=== PATIENT | male | born 1970 | race Caucasian/White ===

== ENCOUNTER → 2019-01-28 07:40 | Outpatient (CLI) | payer MEDICAID, SELFPAY ==
--- NOTE | 2019-01-28 07:45 | VDLE_ITS ---
Reason For Study: chronic venous insufficiency RIGHT LEFT CFV is compressible, spontaneous, phasic, CFV is compressible, spontaneous, phasic, competent and demonstrates normal competent, and demonstrates normal augmentation. augmentation. FV is compressible, spontaneous, phasic, FV is compressible, spontaneous, phasic, competent and demonstrates normal competent and demonstrates normal augmentation. augmentation. POP V is compressible, spontaneous, phasic, POP V is compressible, spontaneous, phasic, competent and demonstrates normal competent and demonstrates normal augmentation. augmentation. T/P Trunk is compressible. T/P Trunk is compressible. PTV is compressible. PTV is compressible. RT PerV is compressible. LT PerV is compressible. S-F Junction is competent. S-F Junction is competent. GSV is competent above the knee, but GSV is competent above the knee, but incompetent below the knee for greater incompetent below the knee for greater than .5 seconds. GSV measures .43 x .48 cm. than .5 seconds. GSV measures .48 x .56 cm. ASV below the knee is incompetent for greater ASV below the knee is incompetent for greater than .5 seconds. ASV measures .31 x 37 cm. than .5 seconds. ASV measures .34 x .43 cm. Professor Of History V 8 cm proximal to the medial SSV is competent. malleolus is incompetent for greater than .5 seconds. SSV isincompetent for greater than .5 seconds. SSV measures .32 x .34 cm. Procedure Exam performed in department. The exam was diagnostic. Interpretation Summary 1. Bilateral no DVT. 2. Bilateral above knee GSV competent. But bilateral below knee GSV with reflux measuring right 4.8mm and left 5.6mm. 3. Bilateral below knee ASV relfux measuring right 3.7mm and left 4.3mm. 4. 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 Ordering Physician: Beau Carlisle Performed By: Matt Peters RVT
== END ==
PROVIDERS: Family Provider Family Medicine; PCP Family Medicine; Referring Provider Surgery Vascular Surgery; Visit Provider Surgery Vascular Surgery
DX: I83.893 Varicose veins of bilateral lower extremities with other complications (principal); M79.609 Pain in unspecified limb; M79.89 Other specified soft tissue disorders; I87.2 Venous insufficiency (chronic) (peripheral)
CPT/HCPCS: 93970

== ENCOUNTER 2023-03-07 08:15 | Outpatient (RCR) | payer OTHER, MEDICAID, SELFPAY ==
[2023-02-21 08:21] VITALS: BP 164/91; PULSE 67; RESP 18; TEMP 36.3; BMI 52.9
--- NOTE | 2023-02-21 13:06 | HP.PCM_ITS ---
History of Present Illness Date of Service: 02/21/23 Chief Complaint: Bilateral lower leg ulcerations History of Wound: Patient presents to [facility] today as referred by his PCP for evaluation and management of bilateral lower extremity ulcers. He is accompanied to his appointment today by his . These wounds have been present for several weeks. He is currently on Bactrim as prescribed by his PCP. Washing with soap and water and covering with gauze currently. He has had recurrent ulcerations of bilateral lower extremities for the last 7-8 years. He reports they typically occur from very minor trauma to his lower legs, sometimes they develop unprovoked. In the past, PCP has treated with Unna boots and the ulcers will heal up, but they always recur within a few weeks to a month. He does have significant bilateral lower extremity edema. He does not wear compression, he has tried non-measured compression stockings in the past but they did not fit him well and he had a difficult time putting them on. He estimates he has had about 6 prior venous ablations by Dr. Carlisle but has not followed up with him in a few years. He does not feel the ablations seemed to help. He is also currently taking Lasix for his BLE edema, helping somewhat. This is all complicated by his bilateral knee pain and chronic back pain. Another reason he does not wear compression is because he feels it increases the swelling and pain in his knees. He has been told he needs both knees replaced, but they will not do the surgery until he loses weight which he refuses to attempt to do. He also sleeps in a recliner due to his chronic back pain. He props his feet up on a stool, but this does not elevate them to the level of his heart. He is diabetic, fairly well-controlled. He is a former smoker, quit about 5 years ago. He denies history of arterial disease or intervention, VTE. No lymphedema diagnosis. [facility] Home Medications Aspir-81 81 mg DAILY 02/21/23 [History Last Taken Unknown] amlodipine-valsartan 1 tablet DAILY 02/21/23 [History Last Taken Unknown] carvedilol 1 tablet BID 02/21/23 [History Last Taken Unknown] empagliflozin 10 mg tablet (Jardiance) 10 mg PO BREAKFAST 02/21/23 [History Last Taken Unknown] furosemide 40 mg tablet 40 mg PO DAILY 02/21/23 [History Last Taken Unknown] metformin 500 mg tablet,extended release 24 hr 500 mg PO BID 02/21/23 [History Last Taken Unknown] oxycodone-acetaminophen 7.5 mg-325 mg tablet 1 tab PO Q6H PRN knee pain 02/21/23 [History Last Taken Unknown] rosuvastatin 10 mg tablet 10 mg PO QHS 02/21/23 [History Last Taken Unknown] Social History Smoking Status: Former smoker Vital Signs Vital Signs Vital Signs: 02/21/23 08:21 Temperature 97.3 F L Temperature Source Temporal Pulse Rate 67 Respiratory Rate 18 Blood Pressure 164/91 H Blood Pressure Mean 115 Blood Pressure Source Monitor Blood Pressure Position Semi-Fowlers Blood Pressure Location Left Arm Weight Weight: 380 lb Body Mass Index (BMI) 52.9 Physical Exam Const alert, oriented x3 and no apparent distress Orientation / Consciousness: awake, oriented to person, oriented to place and oriented to time Nutritional Appearance: morbidly obese HEENT normocephalic, head/scalp atraumatic, hearing grossly normal bilaterally, external ears normal and external nose normal Eyes EOMs intact bilaterally General Eye: normal appearance of both eyes Neck General: normal visual inspection and trachea midline Resp normal respiratory effort, normal air movement, no retractions, no use of accessory muscles and clear to auscultation bilaterally Effort and Inspection: able to speak in complete sentences; Negative for labored or stridor Cardio regular rate, regular rhythm and peripheral pulses 2+ throughout Extremity Extremity Narrative: Significant bilateral lower extremity edema. No visible varicosities. No pallor or cyanotic discoloration. Palpable DP pulses. Skin Skin Narrative: Bilateral lipodermatosclerosis, hemosiderin staining, fluid-filled blisters. R posterolateral calf cluster with very thick, dry, hardened slough overlying. [place] wound base once debrided. Small R medial calf ulceration with moderate slough. Large L posterior calf ulceration with very thick, dry, hardened, adherent slough overlying. [place] wound base once debrided. Neuro oriented x3, CN's II-XII intact bilaterally, moves all extremities and no focal motor deficits Speech: speech normal Psych Appearance: grossly normal Attitude: calm Activity / Motor Behavior: appropriate eye contact Speech: normal speech Debridement Note Debridement Note Wound debrided: R posterolateral lower leg cluster Laterality: Right Type of Debridement: Excisional debridement Anesthesia Used: 5% Lidocaine Gel Depth: Down to and including healthy tissue Percentage of wound debrided: 100 Instrument Used: 5mm curette Severity: Limited To Skin Breakdown Amount of bleeding with debridement: Mild Bleeding Controlled with: Pressure Patient tolerated procedure: Patient tolerated procedure well Post-Debridement Measurements and Additional Note: Post-Debridement Measurements/Treatment MARIJA - Nurse 1 - General Ulcer Assessment Start: 02/21/23 08:21 Freq: Status: Active Protocol: RENETTA Activity Type Activity Date Activity User E-sign Co-sign Detail Recorded Client Recorded Date Recorded By Document 02/21/23 08:21 JF [id number] 02/21/23 08:39 JF Edit Result 02/21/23 08:21 JF (1) [id number] 02/21/23 08:50 JF (1) Right - Posterior Tibial Palpable => Yes - Posterior Tibial Doppler => Multiphasic - Dorsalis Pedis Palpable => Yes - Dorsalis Pedis Doppler => Multiphasic - Extremity Color => Hyperpigmented, => Hemosiderin - Hair Growth on Legs => Yes - Hair Growth on Toes => No - Temperature of Extremity => Warm - Capillary Refill => Less than 3 => Seconds - Dependent Rubor => Yes - Blanched when Elevated => N/A - Lipodermatosclerosis => Yes - Foot Assessment => Not Applicable Left - Posterior Tibial Palpable => No - Dorsalis Pedis Palpable => Yes - Dorsalis Pedis Doppler => Multiphasic - Extremity Color => Hyperpigmented, => Hemosiderin - Hair Growth on Legs => Yes - Hair Growth on Toes => No - Temperature of Extremity => Warm - Capillary Refill => Less than 3 => Seconds - Dependent Rubor => Yes - Blanched when Elevated => N/A - Lipodermatosclerosis => Yes - Other Deformity => No - Prior Foot Ulcer => No - Charcot Joint => No - Prior Amputation => No - Thick => No - Discolored => No - Deformed => No - Improper Length & Hygeine => No Preferred language => [place] Cable Stretcher And Tester Required => No Able to Read => Yes Able to Write => Yes Communication Tools => None Caregiver Communication Skills => No Impairment Impairment Right Hearing Abillity => Normal Left Hearing Abillity => Normal Visual Assistive Devices => Glasses Smoking Status Never smoker => Former smoker 02/21/23 08:21 WC - Today's Visit Information Type of service Initial Visit Arrival Mode Ambulatory Accompanied by Patient Identification Verified (Name & Yes ) Patient Requires Transmission-Based No Precautions Height and Weight Height 5 ft 11 in Weight 380 lb Weight in Pounds 380.0 lbs Body Mass Index (BMI) 52.9 BMI Classification Obese BSA - Nik 2.77 Vital Signs Temperature (97.8 F-99.1 F) 97.3 F L Temperature Source Temporal Pulse Rate (60-100) 67 Pulse Location Monitor Respiratory Rate (12-18) 18 Respiratory rate source Observation Blood Pressure (90/60-120/80) 164/91 H Blood Pressure Mean 115 Source Monitor Position Semi-Fowlers Blood Pressure Location Left Arm History Since Last Visit- (Skip if this is Patient's initial visit) Left Footwear Regular Shoe Right Footwear Regular Shoe Pain Scale: 0-10 Numeric Is Patient Pain Free? Yes Lower Extremity Assessment/ Foot Assessment/ Toe Nail Assessment Right -Posterior Tibial Palpable Yes -Posterior Tibial Doppler Multiphasic -Dorsalis Pedis Palpable Yes -Dorsalis Pedis Doppler Multiphasic -Extremity Color Hyperpigmented, Hemosiderin -Hair Growth on Legs Yes -Hair Growth on Toes No -Temperature of Extremity Warm -Capillary Refill Less than 3 Seconds -Dependent Rubor Yes -Blanched when Elevated N/A -Lipodermatosclerosis Yes -Foot Assessment Not Applicable Left -Posterior Tibial Palpable No -Dorsalis Pedis Palpable Yes -Dorsalis Pedis Doppler Multiphasic -Extremity Color Hyperpigmented, Hemosiderin -Hair Growth on Legs Yes -Hair Growth on Toes No -Temperature of Extremity Warm -Capillary Refill Less than 3 Seconds -Dependent Rubor Yes -Blanched when Elevated N/A -Lipodermatosclerosis Yes -Other Deformity No -Prior Foot Ulcer No -Charcot Joint No -Prior Amputation No -Thick No -Discolored No -Deformed No -Improper Length & Hygeine No Communication Assessment Preferred language [place] Cable Stretcher And Tester Required No Able to Read Yes Able to Write Yes Communication Tools None Caregiver Communication Skills No Impairment Impairment Right Hearing Abillity Normal Left Hearing Abillity Normal Visual Assistive Devices Glasses Teaching Assessment Preferences Verbal,Written, Demonstration Barriers to Learning None Readiness To Learn Good Willingness to Engage in Self Management Med Activies Readiness to Engage in Self Management Med Activities Anxiety Level Calm Cooperation Cooperative Perception Coherent Interest in Health Problem Asks Questions Education Importance Acknowledges Need Does Patient Smoke tobacco or other No substances Smoking Status Former smoker Is Patient Diabetic Yes Functional Assessment Recent Decline in Ability to Perform Denies Any Declines Assistive Device With Patient Yes Culture/Islam/Grease And Tallow Pumper Cultural/Islam Needs that may affect No Treatment Plan Would you allow our hospital side sawyer to No meet you for the purpose of spiritual/ emotional support? Grease And Tallow Pumper to contact place of nondenominational No Teaching: Wound Center Control Swelling with Leg Elevation -Person Taught Patient,Family -Teaching Method Discussion, Demonstration -Response to teaching Return demonstration, Verbalize understanding [facility] Orientation/ Contacting Physician -Person Taught Patient,Family -Teaching Method Discussion, Demonstration -Response to teaching Return demonstration, Verbalize understanding - Nurse 1 - General Ulcer Measurement Start: 02/21/23 08:21 Freq: Status: Active Protocol: Activity Type Activity Date Activity User E-sign Co-sign Detail Recorded Client Recorded Date Recorded By Document 02/21/23 08:21 [id number] 02/21/23 08:39 02/21/23 08:21 Wound Center Nurse 1 3-left posterior leg cluster -Combined with other wound No -Current Size (cm) - Length 5.0 -Current Size (cm) - Width 11 -Current Size (cm) - Depth 0.1 -Total Square Cm 55.0 -Photo Taken Yes -Epithelialization Small 1-33% -Tunneling No -Undermining/Tunneling No -Circular Undermining No -Exudate Amt Medium -Exudate Type Serosanguineous -Wound Margin Flat & Intact -Granulation Amt None Present (0 %) -Slough/Fibrin Yes -Necrosis Amt Large (67-100%) -Necrotic Tissue Type Adherent Slough -Structure Exposed N/A -Texture (Sara-wound Skin Appearance) Assessed, Localized Edema -Moisture (Sara-wound Skin Appearance) Assessed,Dry/ Scaly -Color (Sara-wound Skin Appearance) Assessed, Hemosiderin Staining -Temperature (Sara-wound Skin No Abnormality Appearance) (Pt Warm) -Tenderness on Palpation (Sara-wound No Skin Appearance) -Ulcer Cleansing Wound Cleanser -Foul Odor after Cleansing No -Anesthetic Used 5% Lidocaine Gel 2-right medial leg -Combined with other wound No -Current Size (cm) - Length 0.5 -Current Size (cm) - Width 1.8 -Current Size (cm) - Depth 0.1 -Total Square Cm 0.90 -Photo Taken Yes -Epithelialization Small 1-33% -Tunneling No -Undermining/Tunneling No -Circular Undermining No -Exudate Amt Small -Exudate Type Serosanguineous -Wound Margin Flat & Intact -Granulation Amt None Present (0 %) -Slough/Fibrin Yes -Necrosis Amt Large (67-100%) -Necrotic Tissue Type Adherent Slough -Structure Exposed N/A -Texture (Sara-wound Skin Appearance) Assessed, Localized Edema -Moisture (Sara-wound Skin Appearance) Assessed,Dry/ Scaly -Color (Sara-wound Skin Appearance) Assessed -Temperature (Sara-wound Skin No Abnormality Appearance) (Pt Warm) -Tenderness on Palpation (Sara-wound No Skin Appearance) -Ulcer Cleansing Wound Cleanser -Foul Odor after Cleansing No -Anesthetic Used 5% Lidocaine Gel 1-right lateral leg cluster -Combined with other wound No -Current Size (cm) - Length 4.5 -Current Size (cm) - Width 10.5 -Current Size (cm) - Depth 0.1 -Total Square Cm 47.25 -Photo Taken Yes -Epithelialization Small 1-33% -Tunneling No -Undermining/Tunneling No -Circular Undermining No -Exudate Amt Medium -Exudate Type Serosanguineous -Wound Margin Flat & Intact -Granulation Amt Small (1-33%) -Granulation Quality Ring[place] -Slough/Fibrin Yes -Necrosis Amt Large (67-100%) -Necrotic Tissue Type Adherent Slough -Structure Exposed N/A -Texture (Sara-wound Skin Appearance) Assessed, Localized Edema -Moisture (Sara-wound Skin Appearance) Assessed,Dry/ Scaly -Color (Sara-wound Skin Appearance) Assessed, Hemosiderin Staining -Temperature (Sara-wound Skin No Abnormality Appearance) (Pt Warm) -Tenderness on Palpation (Sara-wound No Skin Appearance) -Ulcer Cleansing Rinsed/ Irrigated with Saline -Foul Odor after Cleansing No -Anesthetic Used 5% Lidocaine Gel Lower Limb Edema Present Yes Right Calf (cm) 54.8 Right Ankle (cm) 32 Left Calf (cm) 54.5 Left Ankle (cm) 32.5 WC - Nurse 2 - General Ulcer CM Notes Start: 02/21/23 08:21 Freq: Status: Active Protocol: Activity Type Activity Date Activity User E-sign Co-sign Detail Recorded Client Recorded Date Recorded By Document 02/21/23 11:56 TRINH [id number] 02/21/23 12:01 PL 02/21/23 11:56 Wound Center Nurse 2 3-left posterior leg cluster -Time 08:08 -Correct Patient Yes -Correct Side, Site, Position Yes -Correct Procedure Yes -Procedure Performed Yes -Type of Procedure Debridement -Clinical Debridement Subcutaneous -Tissue Removed Subcutaneous -Post Debridement (cm) - Length 8.7 -Post Debridement (cm) - Width 13.3 -Post Debridement (cm) - Depth 0.1 -Total Square (Post) (cm) 115.71 -Area of Debridement (cm) - Length 8.7 -Area of Debridement (cm) - Width 13.3 -Total Square (Area) (cm) 115.71 -Tunneling No -Undermining/Tunneling No -Circular Undermining No -Wound/Ulcer Outcome Not Healed -Ulcer Cleansing Rinsed/ Irrigated with Saline -Foul Odor after Cleansing No -Bioengineered Tissue No -Bleeding Controlled with Pressure -Treatment Response Procedure Tolerated Well -Debridement - Subq, 1st 20sq cm Yes -Debridement, SubQ, ea addt'l 20sq cm 8 or part thereof 2-right medial leg -Time 08:58 -Correct Patient Yes -Correct Side, Site, Position Yes -Correct Procedure Yes -Procedure Performed Yes -Type of Procedure Debridement -Clinical Debridement Subcutaneous -Tissue Removed Subcutaneous -Post Debridement (cm) - Length 0.9 -Post Debridement (cm) - Width 1.2 -Post Debridement (cm) - Depth 0.1 -Total Square (Post) (cm) 1.08 -Area of Debridement (cm) - Length 0.9 -Area of Debridement (cm) - Width 1.2 -Total Square (Area) (cm) 1.08 -Tunneling No -Undermining/Tunneling No -Circular Undermining No -Wound/Ulcer Outcome Not Healed -Ulcer Cleansing Rinsed/ Irrigated with Saline -Foul Odor after Cleansing No -Bioengineered Tissue No -Bleeding Controlled with Pressure -Treatment Response Procedure Tolerated Well -Debridement - Subq, 1st 20sq cm No 1-right lateral leg cluster -Time 08:58 -Correct Patient Yes -Correct Side, Site, Position Yes -Correct Procedure Yes -Procedure Performed Yes -Type of Procedure Debridement -Clinical Debridement Subcutaneous -Tissue Removed Subcutaneous -Post Debridement (cm) - Length 4.0 -Post Debridement (cm) - Width 11.3 -Post Debridement (cm) - Depth 0.1 -Total Square (Post) (cm) 45.20 -Area of Debridement (cm) - Length 4.0 -Area of Debridement (cm) - Width 11.3 -Total Square (Area) (cm) 45.20 -Tunneling No -Undermining/Tunneling No -Circular Undermining No -Wound/Ulcer Outcome Not Healed -Ulcer Cleansing Rinsed/ Irrigated with Saline -Foul Odor after Cleansing No -Bioengineered Tissue No -Bleeding Controlled with Pressure -Treatment Response Procedure Tolerated Well -Debridement - Subq, 1st 20sq cm No Pain Scale: 0-10 Numeric Is Patient Pain Free? Yes WC - Nurse 3 - General Ulcer D/C NN Start: 02/21/23 08:21 Freq: Status: Active Protocol: Activity Type Activity Date Activity User E-sign Co-sign Detail Recorded Client Recorded Date Recorded By Document 02/21/23 10:08 KOLTON [id number] 02/21/23 10:09 KOLTON 02/21/23 10:08 Wound Care Center Nurse 3 3-left posterior leg cluster -Ulcer Cleansing Rinsed/ Irrigated with Saline -Foul Odor after Cleansing No -Primary Dressing Applied Aquacel AG 4x4, Optilok 6.5x10 -Primary Dressing Covered/Secured with Dry Gauze & Roll Gauze, Secured with Tape -Aquacel AG 4x4 1 -Optilok 6.5x10 1 2-right medial leg -Ulcer Cleansing Rinsed/ Irrigated with Saline -Foul Odor after Cleansing No -Primary Dressing Applied Aquacel AG 4x4 -Primary Dressing Covered/Secured with Dry Gauze & Roll Gauze, Secured with Tape -Aquacel AG 4x4 1 1-right lateral leg cluster -Ulcer Cleansing Rinsed/ Irrigated with Saline -Foul Odor after Cleansing No -Primary Dressing Applied Aquacel AG 4x4 -Primary Dressing Covered/Secured with Dry Gauze & Roll Gauze, Secured with Tape -Aquacel AG 4x4 0 Right -Tubular Bandage Single Layer -Size of Tubigrip Used Size F -Size F ($) 2 Left -Tubular Bandage Single Layer -Size of Tubigrip Used Size F -Size F ($) 2 Pain Scale: 0-10 Numeric Is Patient Pain Free? Yes WC - Visit Discharge Discharge Condition Stable Ambulatory Status Ambulatory Transportation Private Auto Accompanied by Medication Reconcilliation completed & No provided to patient/care provider Clinical Summary of Care Provided No Additional Wound Wound debrided: R medial calf Laterality: Right Type of Debridement: Excisional debridement Anesthesia Used: 5% Lidocaine Gel Depth: Down to and including healthy tissue Percentage of wound debrided: 100 Instrument Used: 5mm curette Severity: Limited To Skin Breakdown Amount of bleeding with debridement: Mild Bleeding Controlled with: Pressure Patient tolerated procedure: Patient tolerated procedure well Additional Wound Wound debrided: L posterior calf Laterality: Left Type of Debridement: Excisional debridement Anesthesia Used: 5% Lidocaine Gel Depth: Down to and including healthy tissue Percentage of wound debrided: 100 Instrument Used: 7mm curette Tissue Removed: slough, devitalized tissue Charges/Coding Visit Charges Office Visits / Consults: [id number] OV L3 New Procedures Integumentary [id number]: [id number] Eusebia subq tissue 20 sq cm/< Assessment/Plan Assessment/Plan (1) Non-pressure chronic ulcer left lower leg, limited to breakdown skin: CODE(S): L97.921 - Non-pressure chronic ulcer of unspecified part of left lower leg limited to breakdown of skin (2) Non-pressure chronic ulcer right lower leg, limited to breakdown skin: CODE(S): L97.911 - Non-pressure chronic ulcer of unspecified part of right lower leg limited to breakdown of skin (3) Bilateral lower extremity edema: CODE(S): R60.0 - Localized edema PLAN: Plan Patient's wounds appear to be secondary to his significant bilateral lower extremity edema. He has a history of venous insufficiency with multiple prior ablations, last venous imaging was about 4 years ago. We will obtain an updated ultrasound to include evaluation for reflux. He has palpable DP pulses bilaterally with appropriate warmth and normal capillary refill so low suspicion for any significant arterial disease contributing to his wounds. He is diabetic but reports his last A1c was 6.1. He does not smoke currently. We will apply Aquacel silver to all wound bases, wrap with Kerlix. Change dressings at least once daily or more often as needed to keep clean and dry. Wash ulcers with gentle soap and water and pat dry with dressing changes. Do not submerge wounds in water. Patient is very hesitant to allow use of compression as he is concerned this will worsen his knee pain. Unfortunately, controlling the edema on his lower legs is necessary to healing these wounds and compression is the most effective way to do so. Ultimately, patient was agreeable to single layer of moderate strength Tubigrips. Discussed with patient the importance of elevating his feet whenever resting or sleeping. Avoid prolonged standing or sitting with feet dependent. Also advised patient to increase protein decrease sugar/carbs in his diet is to encourage wound healing. He will return in 1 week or sooner as needed.
--- NOTE | 2023-02-28 07:23 | PCM.WC.PN ---
History of Present Illness Date of Service: 02/28/23 Chief Complaint: Bilateral lower leg ulcerations History of Wound: Patient presents to [facility] today as referred by his PCP for evaluation and management of bilateral lower extremity ulcers. He is accompanied to his appointment today by his . These wounds have been present for several weeks. He is currently on Bactrim as prescribed by his PCP. Washing with soap and water and covering with gauze currently. He has had recurrent ulcerations of bilateral lower extremities for the last 7-8 years. He reports they typically occur from very minor trauma to his lower legs, sometimes they develop unprovoked. In the past, PCP has treated with Unna boots and the ulcers will heal up, but they always recur within a few weeks to a month. He does have significant bilateral lower extremity edema. He does not wear compression, he has tried non-measured compression stockings in the past but they did not fit him well and he had a difficult time putting them on. He estimates he has had about 6 prior venous ablations by Dr. Carlisle but has not followed up with him in a few years. He does not feel the ablations seemed to help. He is also currently taking Lasix for his BLE edema, helping somewhat. This is all complicated by his bilateral knee pain and chronic back pain. Another reason he does not wear compression is because he feels it increases the swelling and pain in his knees. He has been told he needs both knees replaced, but they will not do the surgery until he loses weight which he refuses to attempt to do. He also sleeps in a recliner due to his chronic back pain. He props his feet up on a stool, but this does not elevate them to the level of his heart. He is diabetic, fairly well-controlled. He is a former smoker, quit about 5 years ago. He denies history of arterial disease or intervention, VTE. No lymphedema diagnosis. Subjective Subjective He has been wearing tubigrip compression stockings as directed, though was not wearing them when he presented today because he just had duplex completed. He has not yet received wound care supplies so has not been applying dressings. Despite this, his wounds are slightly improved in appearance. Denies N/V, F/C, increased redness, pain, drainage. Objective Data Objective Data Vital Signs: Vital Signs Temp Pulse Resp BP 97.3 F L 67 18 164/91 H 02/21/23 08:21 02/21/23 08:21 02/21/23 08:21 02/21/23 08:21 Weight: 380 lb Body Mass Index (BMI) 52.9 Charges/Coding Procedures Integumentary [id number]: [id number] Eusebia subq tissue 20 sq cm/< Physical Exam Const alert, oriented x3 and no apparent distress Orientation / Consciousness: awake, oriented to person, oriented to place and oriented to time Nutritional Appearance: morbidly obese HEENT normocephalic, head/scalp atraumatic, hearing grossly normal bilaterally, external ears normal and external nose normal Eyes EOMs intact bilaterally General Eye: normal appearance of both eyes Neck General: normal visual inspection and trachea midline Resp normal respiratory effort, normal air movement, no retractions, no use of accessory muscles and clear to auscultation bilaterally Effort and Inspection: able to speak in complete sentences; Negative for labored or stridor Cardio regular rate, regular rhythm and peripheral pulses 2+ throughout Extremity Extremity Narrative: Significant bilateral lower extremity edema. No visible varicosities. No pallor or cyanotic discoloration. Palpable DP pulses. Skin Skin Narrative: Bilateral lipodermatosclerosis, hemosiderin staining, fluid-filled blisters. R posterolateral calf cluster and R medial calf ulceration with minimal slough this week, very superficial and improved in appearance from last week. Large L posterior calf ulceration with moderate slough. [place] wound base once debrided. Neuro oriented x3, CN's II-XII intact bilaterally, moves all extremities and no focal motor deficits Speech: speech normal Psych Appearance: grossly normal Attitude: calm Activity / Motor Behavior: appropriate eye contact Speech: normal speech Debridement Note Debridement Note Wound debrided: R posterolateral lower leg cluster Laterality: Right Type of Debridement: Excisional debridement Anesthesia Used: 5% Lidocaine Gel Depth: Down to and including healthy tissue Percentage of wound debrided: 100 Instrument Used: 5mm curette Severity: Limited To Skin Breakdown Amount of bleeding with debridement: Mild Bleeding Controlled with: Pressure Patient tolerated procedure: Patient tolerated procedure well Post-Debridement Measurements and Additional Note: Post-Debridement Measurements/Treatment MARIJA - Nurse 1 - General Ulcer Assessment Start: 02/21/23 08:21 Freq: Status: Active Protocol: RENETTA Activity Type Activity Date Activity User E-sign Co-sign Detail Recorded Client Recorded Date Recorded By Document 02/21/23 08:21 KOLTON [id number] 02/21/23 08:39 JF Edit Result 02/21/23 08:21 JF (1) [id number] 02/21/23 08:50 JF (1) Right - Posterior Tibial Palpable => Yes - Posterior Tibial Doppler => Multiphasic - Dorsalis Pedis Palpable => Yes - Dorsalis Pedis Doppler => Multiphasic - Extremity Color => Hyperpigmented, => Hemosiderin - Hair Growth on Legs => Yes - Hair Growth on Toes => No - Temperature of Extremity => Warm - Capillary Refill => Less than 3 => Seconds - Dependent Rubor => Yes - Blanched when Elevated => N/A - Lipodermatosclerosis => Yes - Foot Assessment => Not Applicable Left - Posterior Tibial Palpable => No - Dorsalis Pedis Palpable => Yes - Dorsalis Pedis Doppler => Multiphasic - Extremity Color => Hyperpigmented, => Hemosiderin - Hair Growth on Legs => Yes - Hair Growth on Toes => No - Temperature of Extremity => Warm - Capillary Refill => Less than 3 => Seconds - Dependent Rubor => Yes - Blanched when Elevated => N/A - Lipodermatosclerosis => Yes - Other Deformity => No - Prior Foot Ulcer => No - Charcot Joint => No - Prior Amputation => No - Thick => No - Discolored => No - Deformed => No - Improper Length & Hygeine => No Preferred language => Citizen Of [place] Con[place] Operator Required => No Able to Read => Yes Able to Write => Yes Communication Tools => None Caregiver Communication Skills => No Impairment Impairment Right Hearing Abillity => Normal Left Hearing Abillity => Normal Visual Assistive Devices => Glasses Smoking Status Never smoker => Former smoker 02/21/23 08:21 - Today's Visit Information Type of service Initial Visit Arrival Mode Ambulatory Accompanied by Patient Identification Verified (Name & Yes ) Patient Requires Transmission-Based No Precautions Height and Weight Height 5 ft 11 in Weight 380 lb Weight in Pounds 380.0 lbs Body Mass Index (BMI) 52.9 BMI Classification Obese BSA - Nik 2.77 Vital Signs Temperature (97.8 F-99.1 F) 97.3 F L Temperature Source Temporal Pulse Rate (60-100) 67 Pulse Location Monitor Respiratory Rate (12-18) 18 Respiratory rate source Observation Blood Pressure (90/60-120/80) 164/91 H Blood Pressure Mean (mm Hg) 115 Source Monitor Position Semi-Fowlers Blood Pressure Location Left Arm History Since Last Visit- (Skip if this is Patient's initial visit) Left Footwear Regular Shoe Right Footwear Regular Shoe Pain Scale: 0-10 Numeric Is Patient Pain Free? Yes Lower Extremity Assessment/ Foot Assessment/ Toe Nail Assessment Right -Posterior Tibial Palpable Yes -Posterior Tibial Doppler Multiphasic -Dorsalis Pedis Palpable Yes -Dorsalis Pedis Doppler Multiphasic -Extremity Color Hyperpigmented, Hemosiderin -Hair Growth on Legs Yes -Hair Growth on Toes No -Temperature of Extremity Warm -Capillary Refill Less than 3 Seconds -Dependent Rubor Yes -Blanched when Elevated N/A -Lipodermatosclerosis Yes -Foot Assessment Not Applicable Left -Posterior Tibial Palpable No -Dorsalis Pedis Palpable Yes -Dorsalis Pedis Doppler Multiphasic -Extremity Color Hyperpigmented, Hemosiderin -Hair Growth on Legs Yes -Hair Growth on Toes No -Temperature of Extremity Warm -Capillary Refill Less than 3 Seconds -Dependent Rubor Yes -Blanched when Elevated N/A -Lipodermatosclerosis Yes -Other Deformity No -Prior Foot Ulcer No -Charcot Joint No -Prior Amputation No -Thick No -Discolored No -Deformed No -Improper Length & Hygeine No Communication Assessment Preferred language Citizen Of [place] Operator Required No Able to Read Yes Able to Write Yes Communication Tools None Caregiver Communication Skills No Impairment Impairment Right Hearing Abillity Normal Left Hearing Abillity Normal Visual Assistive Devices Glasses Teaching Assessment Preferences Verbal,Written, Demonstration Barriers to Learning None Readiness To Learn Good Willingness to Engage in Self Management Med Activies Readiness to Engage in Self Management Med Activities Anxiety Level Calm Cooperation Cooperative Perception Coherent Interest in Health Problem Asks Questions Education Importance Acknowledges Need Does Patient Smoke tobacco or other No substances Smoking Status Former smoker Is Patient Diabetic Yes Functional Assessment Recent Decline in Ability to Perform Denies Any Declines Assistive Device With Patient Yes Culture/Sikhism/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 Fisheries Management Biologist to contact place of caodaism No Teaching: Wound Center Control Swelling with Leg Elevation -Person Taught Patient,Family -Teaching Method Discussion, Demonstration -Response to teaching Return demonstration, Verbalize understanding [facility] Orientation/ Contacting Physician -Person Taught Patient,Family -Teaching Method Discussion, Demonstration -Response to teaching Return demonstration, Verbalize understanding - Nurse 1 - General Ulcer Measurement Start: 02/21/23 08:21 Freq: Status: Active Protocol: Activity Type Activity Date Activity User E-sign Co-sign Detail Recorded Client Recorded Date Recorded By Document 02/21/23 08:21 KOLTON [id number] 02/21/23 08:39 KOLTON 02/21/23 08:21 Wound Center Nurse 1 3-left posterior leg cluster -Combined with other wound No -Current Size (cm) - Length 5.0 -Current Size (cm) - Width 11 -Current Size (cm) - Depth 0.1 -Total Square Cm 55.0 -Photo Taken Yes -Epithelialization Small 1-33% -Tunneling No -Undermining/Tunneling No -Circular Undermining No -Exudate Amt Medium -Exudate Type Serosanguineous -Wound Margin Flat & Intact -Granulation Amt None Present (0 %) -Slough/Fibrin Yes -Necrosis Amt Large (67-100%) -Necrotic Tissue Type Adherent Slough -Structure Exposed N/A -Texture (Sara-wound Skin Appearance) Assessed, Localized Edema -Moisture (Sara-wound Skin Appearance) Assessed,Dry/ Scaly -Color (Sara-wound Skin Appearance) Assessed, Hemosiderin Staining -Temperature (Sara-wound Skin No Abnormality Appearance) (Pt Warm) -Tenderness on Palpation (Sara-wound No Skin Appearance) -Ulcer Cleansing Wound Cleanser -Foul Odor after Cleansing No -Anesthetic Used 5% Lidocaine Gel 2-right medial leg -Combined with other wound No -Current Size (cm) - Length 0.5 -Current Size (cm) - Width 1.8 -Current Size (cm) - Depth 0.1 -Total Square Cm 0.90 -Photo Taken Yes -Epithelialization Small 1-33% -Tunneling No -Undermining/Tunneling No -Circular Undermining No -Exudate Amt Small -Exudate Type Serosanguineous -Wound Margin Flat & Intact -Granulation Amt None Present (0 %) -Slough/Fibrin Yes -Necrosis Amt Large (67-100%) -Necrotic Tissue Type Adherent Slough -Structure Exposed N/A -Texture (Sara-wound Skin Appearance) Assessed, Localized Edema -Moisture (Sara-wound Skin Appearance) Assessed,Dry/ Scaly -Color (Sara-wound Skin Appearance) Assessed -Temperature (Sara-wound Skin No Abnormality Appearance) (Pt Warm) -Tenderness on Palpation (Sara-wound No Skin Appearance) -Ulcer Cleansing Wound Cleanser -Foul Odor after Cleansing No -Anesthetic Used 5% Lidocaine Gel 1-right lateral leg cluster -Combined with other wound No -Current Size (cm) - Length 4.5 -Current Size (cm) - Width 10.5 -Current Size (cm) - Depth 0.1 -Total Square Cm 47.25 -Photo Taken Yes -Epithelialization Small 1-33% -Tunneling No -Undermining/Tunneling No -Circular Undermining No -Exudate Amt Medium -Exudate Type Serosanguineous -Wound Margin Flat & Intact -Granulation Amt Small (1-33%) -Granulation Quality [place] -Slough/Fibrin Yes -Necrosis Amt Large (67-100%) -Necrotic Tissue Type Adherent Slough -Structure Exposed N/A -Texture (Sara-wound Skin Appearance) Assessed, Localized Edema -Moisture (Sara-wound Skin Appearance) Assessed,Dry/ Scaly -Color (Sara-wound Skin Appearance) Assessed, Hemosiderin Staining -Temperature (Sara-wound Skin No Abnormality Appearance) (Pt Warm) -Tenderness on Palpation (Sara-wound No Skin Appearance) -Ulcer Cleansing Rinsed/ Irrigated with Saline -Foul Odor after Cleansing No -Anesthetic Used 5% Lidocaine Gel Lower Limb Edema Present Yes Right Calf (cm) 54.8 Right Ankle (cm) 32 Left Calf (cm) 54.5 Left Ankle (cm) 32.5 WC - Nurse 2 - General Ulcer CM Notes Start: 02/21/23 08:21 Freq: Status: Active Protocol: Activity Type Activity Date Activity User E-sign Co-sign Detail Recorded Client Recorded Date Recorded By Document 02/21/23 11:56 PL [id number] 02/21/23 12:01 PL 02/21/23 11:56 Wound Center Nurse 2 3-left posterior leg cluster -Time 08:08 -Correct Patient Yes -Correct Side, Site, Position Yes -Correct Procedure Yes -Procedure Performed Yes -Type of Procedure Debridement -Clinical Debridement Subcutaneous -Tissue Removed Subcutaneous -Post Debridement (cm) - Length 8.7 -Post Debridement (cm) - Width 13.3 -Post Debridement (cm) - Depth 0.1 -Total Square (Post) (cm) 115.71 -Area of Debridement (cm) - Length 8.7 -Area of Debridement (cm) - Width 13.3 -Total Square (Area) (cm) 115.71 -Tunneling No -Undermining/Tunneling No -Circular Undermining No -Wound/Ulcer Outcome Not Healed -Ulcer Cleansing Rinsed/ Irrigated with Saline -Foul Odor after Cleansing No -Bioengineered Tissue No -Bleeding Controlled with Pressure -Treatment Response Procedure Tolerated Well -Debridement - Subq, 1st 20sq cm Yes -Debridement, SubQ, ea addt'l 20sq cm 8 or part thereof 2-right medial leg -Time 08:58 -Correct Patient Yes -Correct Side, Site, Position Yes -Correct Procedure Yes -Procedure Performed Yes -Type of Procedure Debridement -Clinical Debridement Subcutaneous -Tissue Removed Subcutaneous -Post Debridement (cm) - Length 0.9 -Post Debridement (cm) - Width 1.2 -Post Debridement (cm) - Depth 0.1 -Total Square (Post) (cm) 1.08 -Area of Debridement (cm) - Length 0.9 -Area of Debridement (cm) - Width 1.2 -Total Square (Area) (cm) 1.08 -Tunneling No -Undermining/Tunneling No -Circular Undermining No -Wound/Ulcer Outcome Not Healed -Ulcer Cleansing Rinsed/ Irrigated with Saline -Foul Odor after Cleansing No -Bioengineered Tissue No -Bleeding Controlled with Pressure -Treatment Response Procedure Tolerated Well -Debridement - Subq, 1st 20sq cm No 1-right lateral leg cluster -Time 08:58 -Correct Patient Yes -Correct Side, Site, Position Yes -Correct Procedure Yes -Procedure Performed Yes -Type of Procedure Debridement -Clinical Debridement Subcutaneous -Tissue Removed Subcutaneous -Post Debridement (cm) - Length 4.0 -Post Debridement (cm) - Width 11.3 -Post Debridement (cm) - Depth 0.1 -Total Square (Post) (cm) 45.20 -Area of Debridement (cm) - Length 4.0 -Area of Debridement (cm) - Width 11.3 -Total Square (Area) (cm) 45.20 -Tunneling No -Undermining/Tunneling No -Circular Undermining No -Wound/Ulcer Outcome Not Healed -Ulcer Cleansing Rinsed/ Irrigated with Saline -Foul Odor after Cleansing No -Bioengineered Tissue No -Bleeding Controlled with Pressure -Treatment Response Procedure Tolerated Well -Debridement - Subq, 1st 20sq cm No Pain Scale: 0-10 Numeric Is Patient Pain Free? Yes - Nurse 3 - General Ulcer D/C NN Start: 02/21/23 08:21 Freq: Status: Active Protocol: Activity Type Activity Date Activity User E-sign Co-sign Detail Recorded Client Recorded Date Recorded By Document 02/21/23 10:08 KOLTON [id number] 02/21/23 10:09 KOLTON 02/21/23 10:08 Wound Care Center Nurse 3 3-left posterior leg cluster -Ulcer Cleansing Rinsed/ Irrigated with Saline -Foul Odor after Cleansing No -Primary Dressing Applied Aquacel AG 4x4, Optilok 6.5x10 -Primary Dressing Covered/Secured with Dry Gauze & Roll Gauze, Secured with Tape -Aquacel AG 4x4 1 -Optilok 6.5x10 1 2-right medial leg -Ulcer Cleansing Rinsed/ Irrigated with Saline -Foul Odor after Cleansing No -Primary Dressing Applied Aquacel AG 4x4 -Primary Dressing Covered/Secured with Dry Gauze & Roll Gauze, Secured with Tape -Aquacel AG 4x4 1 1-right lateral leg cluster -Ulcer Cleansing Rinsed/ Irrigated with Saline -Foul Odor after Cleansing No -Primary Dressing Applied Aquacel AG 4x4 -Primary Dressing Covered/Secured with Dry Gauze & Roll Gauze, Secured with Tape -Aquacel AG 4x4 0 Right -Tubular Bandage Single Layer -Size of Tubigrip Used Size F -Size F ($) 2 Left -Tubular Bandage Single Layer -Size of Tubigrip Used Size F -Size F ($) 2 Pain Scale: 0-10 Numeric Is Patient Pain Free? Yes - Visit Discharge Discharge Condition Stable Ambulatory Status Ambulatory Transportation Private Auto Accompanied by Medication Reconcilliation completed & No provided to patient/care provider Clinical Summary of Care Provided No Additional Wound Wound debrided: R medial calf Laterality: Right Type of Debridement: Excisional debridement Anesthesia Used: 5% Lidocaine Gel Depth: Down to and including healthy tissue Percentage of wound debrided: 100 Instrument Used: 5mm curette Severity: Limited To Skin Breakdown Amount of bleeding with debridement: Mild Bleeding Controlled with: Pressure Patient tolerated procedure: Patient tolerated procedure well Additional Wound Wound debrided: L posterior calf Laterality: Left Type of Debridement: Excisional debridement Anesthesia Used: 5% Lidocaine Gel Depth: Down to and including healthy tissue Percentage of wound debrided: 100 Instrument Used: 7mm curette Tissue Removed: slough, devitalized tissue Assessment/Plan Assessment/Plan (1) Non-pressure chronic ulcer left lower leg, limited to breakdown skin: CODE(S): L97.921 - Non-pressure chronic ulcer of unspecified part of left lower leg limited to breakdown of skin (2) Non-pressure chronic ulcer right lower leg, limited to breakdown skin: CODE(S): L97.911 - Non-pressure chronic ulcer of unspecified part of right lower leg limited to breakdown of skin (3) Bilateral lower extremity edema: CODE(S): R60.0 - Localized edema PLAN: Plan He just completed venous duplex today. Continue Aquacel silver to all wound bases, wrap with Kerlix. Change dressings at least once daily or more often as needed to keep clean and dry. Wash ulcers with gentle soap and water and pat dry with dressing changes. Do not submerge wounds in water. He tolerated moderate strength tubigrips this week, will try higher compression this week. Discussed with patient the importance of elevating his feet whenever resting or sleeping. Avoid prolonged standing or sitting with feet dependent. Also advised patient to increase protein decrease sugar/carbs in his diet is to encourage wound healing. He will return in 1 week or sooner as needed.
--- NOTE | 2023-02-28 07:42 | VDLE_ITS ---
Reason For Study: Bi lateral wounds RIGHT LEFT CFV is compressible, spontaneous, phasic, CFV is compressible, spontaneous, phasic, competent and demonstrates normal competent, and demonstrates normal augmentation. augmentation. FV is compressible, spontaneous, phasic, FV is compressible, spontaneous, phasic, competent and demonstrates normal competent and demonstrates normal augmentation. augmentation. POP V is compressible, spontaneous, phasic, POP V is compressible, spontaneous, phasic, competent and demonstrates normal competent and demonstrates normal augmentation. augmentation. T/P Trunk is compressible. T/P Trunk is compressible. PTV is compressible. PTV is compressible. RT PerV is compressible. LT PerV is compressible. SFJ is competent and measures 0.75 x 0.75 cm. SFJ is competent and measures 0.67 x 0.66 cm. RT GSV AND SSV PREVIOUSLY ABLATED. LT GSV PREVIOUSLY ABLATED. Procedure SSV proximal calf is competent and measures Exam performed in department. 0.45 x 0.48 cm. The exam was diagnostic. ASV proximal calf is INCOMPETENT for greater A preliminary report was called and/or faxed than 0.5 seconds and measures 0.37 x 0.37 cm. to Fabienne Flannery at [facility]. VL/Venous Duplex US - Alexis Extrem Interpretation Summary Deep veins of the bilateral lower extremities are patent and compressible segme ntally. There is no evidence of bilateral lower extremity deep vein thrombosis. Bilateral great saphenous vein prior ablations. Positive for reflux in the left accessory saphenous vein Ordering Physician: Liberty Flannery Referring Physician: Beau Duong Performed By: Cleve Carmichael RVT
[2023-02-28 08:58] VITALS: BP 145/84; PULSE 62; RESP 18; TEMP 35.6; BMI 52.9
--- NOTE | 2023-03-07 07:28 | PCM.WC.PN ---
History of Present Illness Date of Service: 03/07/23 Chief Complaint: Bilateral lower leg ulcerations History of Wound: Patient presents to [facility] today as referred by his PCP for evaluation and management of bilateral lower extremity ulcers. He is accompanied to his appointment today by his . These wounds have been present for several weeks. He is currently on Bactrim as prescribed by his PCP. Washing with soap and water and covering with gauze currently. He has had recurrent ulcerations of bilateral lower extremities for the last 7-8 years. He reports they typically occur from very minor trauma to his lower legs, sometimes they develop unprovoked. In the past, PCP has treated with Unna boots and the ulcers will heal up, but they always recur within a few weeks to a month. He does have significant bilateral lower extremity edema. He does not wear compression, he has tried non-measured compression stockings in the past but they did not fit him well and he had a difficult time putting them on. He estimates he has had about 6 prior venous ablations by Dr. Carlisle but has not followed up with him in a few years. He does not feel the ablations seemed to help. He is also currently taking Lasix for his BLE edema, helping somewhat. This is all complicated by his bilateral knee pain and chronic back pain. Another reason he does not wear compression is because he feels it increases the swelling and pain in his knees. He has been told he needs both knees replaced, but they will not do the surgery until he loses weight which he refuses to attempt to do. He also sleeps in a recliner due to his chronic back pain. He props his feet up on a stool, but this does not elevate them to the level of his heart. He is diabetic, fairly well-controlled. He is a former smoker, quit about 5 years ago. He denies history of arterial disease or intervention, VTE. No lymphedema diagnosis. Subjective Subjective Patient has tolerated the increased compression this week. He has been doing well with dressing changes and has enough supplies. He denies N/V, F/C, new/worsening pain, drainage. Objective Data Objective Data Vital Signs: Vital Signs Temp Pulse Resp BP O2 Del Method 96.1 F L 62 18 145/84 H Room Air 02/28/23 08:58 02/28/23 08:58 02/28/23 08:58 02/28/23 08:58 02/28/23 08:58 Oxygen Delivery Method Room Air Weight: 380 lb Body Mass Index (BMI) 52.9 Charges/Coding Procedures Integumentary 111xxx-113xx: 25781 Eusebia subq tissue 20 sq cm/< Physical Exam Const alert, oriented x3 and no apparent distress Orientation / Consciousness: awake, oriented to person, oriented to place and oriented to time Nutritional Appearance: morbidly obese HEENT normocephalic, head/scalp atraumatic, hearing grossly normal bilaterally, external ears normal and external nose normal Eyes EOMs intact bilaterally General Eye: normal appearance of both eyes Neck General: normal visual inspection and trachea midline Resp normal respiratory effort, normal air movement, no retractions, no use of accessory muscles and clear to auscultation bilaterally Effort and Inspection: able to speak in complete sentences; Negative for labored or stridor Cardio regular rate, regular rhythm and peripheral pulses 2+ throughout Extremity Extremity Narrative: Significant bilateral lower extremity edema. No visible varicosities. No pallor or cyanotic discoloration. Palpable DP pulses. Skin Skin Narrative: Bilateral lipodermatosclerosis, hemosiderin staining. R posterolateral calf cluster minimal slough this week, very superficial and improved in appearance from last week. L posterior calf ulceration with minimal slough, significantly improved in size. Neuro oriented x3, CN's II-XII intact bilaterally, moves all extremities and no focal motor deficits Speech: speech normal Psych Appearance: grossly normal Attitude: calm Activity / Motor Behavior: appropriate eye contact Speech: normal speech Debridement Note Debridement Note Wound debrided: R posterolateral lower leg cluster Laterality: Right Type of Debridement: Excisional debridement Anesthesia Used: 5% Lidocaine Gel Depth: Down to and including healthy tissue Percentage of wound debrided: 100 Instrument Used: 5mm curette Severity: Limited To Skin Breakdown Amount of bleeding with debridement: Mild Bleeding Controlled with: Pressure Patient tolerated procedure: Patient tolerated procedure well Post-Debridement Measurements and Additional Note: Post-Debridement Measurements/Treatment MARIJA - Nurse 1 - General Ulcer Assessment Start: 02/21/23 08:21 Freq: Status: Active Protocol: RENETTA Activity Type Activity Date Activity User E-sign Co-sign Detail Recorded Client Recorded Date Recorded By Document 02/21/23 08:21 KOLTON [id number] 02/21/23 08:39 JF Edit Result 02/21/23 08:21 JF (1) [id number] 02/21/23 08:50 JF Document 02/28/23 08:58 KW [id number] 02/28/23 09:19 KW (1) Right - Posterior Tibial Palpable => Yes - Posterior Tibial Doppler => Multiphasic - Dorsalis Pedis Palpable => Yes - Dorsalis Pedis Doppler => Multiphasic - Extremity Color => Hyperpigmented, => Hemosiderin - Hair Growth on Legs => Yes - Hair Growth on Toes => No - Temperature of Extremity => Warm - Capillary Refill => Less than 3 => Seconds - Dependent Rubor => Yes - Blanched when Elevated => N/A - Lipodermatosclerosis => Yes - Foot Assessment => Not Applicable Left - Posterior Tibial Palpable => No - Dorsalis Pedis Palpable => Yes - Dorsalis Pedis Doppler => Multiphasic - Extremity Color => Hyperpigmented, => Hemosiderin - Hair Growth on Legs => Yes - Hair Growth on Toes => No - Temperature of Extremity => Warm - Capillary Refill => Less than 3 => Seconds - Dependent Rubor => Yes - Blanched when Elevated => N/A - Lipodermatosclerosis => Yes - Other Deformity => No - Prior Foot Ulcer => No - Charcot Joint => No - Prior Amputation => No - Thick => No - Discolored => No - Deformed => No - Improper Length & Hygeine => No Preferred language => Sinhala Test Equipment Mechanic Required => No Able to Read => Yes Able to Write => Yes Communication Tools => None Caregiver Communication Skills => No Impairment Impairment Right Hearing Abillity => Normal Left Hearing Abillity => Normal Visual Assistive Devices => Glasses Smoking Status Never smoker => Former smoker 02/21/23 02/28/23 08:21 08:58 - Today's Visit Information Type of service Initial Visit Follow-up Visit (Physician/[employer] ) Arrival Mode Ambulatory Ambulatory Accompanied by Patient Identification Verified (Name & Yes Yes ) Patient Requires Transmission-Based No No Precautions Safety Precautions NA Height and Weight Height 5 ft 11 in Weight 380 lb Weight in Pounds 380.0 lbs Body Mass Index (BMI) 52.9 52.9 BMI Classification Obese Obese BSA - Nik 2.77 Vital Signs Temperature (97.8 F-99.1 F) 97.3 F L 96.1 F L Temperature Source Temporal Oral Pulse Rate (60-100) 67 62 Pulse Location Monitor Monitor Respiratory Rate (12-18) 18 18 Respiratory rate source Observation Observation Oxygen Delivery Method Room Air Blood Pressure (90/60-120/80) 164/91 H 145/84 H Blood Pressure Mean (mm Hg) 115 104 Source Monitor Monitor Position Semi-Fowlers Sitting Blood Pressure Location Left Arm Right Arm History Since Last Visit- (Skip if this is Patient's initial visit) Have you changed medications since your No last visit? Any new allergies or adverse reactions No Had a fall/change in ADL's that may No increase risk of falls Signs or symptoms of abuse and/or No neglect since last visit Have you been in the hospital since your No last visit? Has dressing in place as prescribed No Has compression in place as prescribed No Has offloadiing in place as prescribed No Experienced any changes in pain level or No management Left Footwear Regular Shoe Other Footwear (Comment) Right Footwear Regular Shoe Other Footwear (Comment) Other Footwear sandles Pain Scale: 0-10 Numeric Is Patient Pain Free? Yes Yes Lower Extremity Assessment/ Foot Assessment/ Toe Nail Assessment Right -Posterior Tibial Palpable Yes -Posterior Tibial Doppler Multiphasic -Dorsalis Pedis Palpable Yes -Dorsalis Pedis Doppler Multiphasic -Extremity Color Hyperpigmented, Hemosiderin -Hair Growth on Legs Yes -Hair Growth on Toes No -Temperature of Extremity Warm -Capillary Refill Less than 3 Seconds -Dependent Rubor Yes -Blanched when Elevated N/A -Lipodermatosclerosis Yes -Foot Assessment Not Applicable Left -Posterior Tibial Palpable No -Dorsalis Pedis Palpable Yes -Dorsalis Pedis Doppler Multiphasic -Extremity Color Hyperpigmented, Hemosiderin -Hair Growth on Legs Yes -Hair Growth on Toes No -Temperature of Extremity Warm -Capillary Refill Less than 3 Seconds -Dependent Rubor Yes -Blanched when Elevated N/A -Lipodermatosclerosis Yes -Other Deformity No -Prior Foot Ulcer No -Charcot Joint No -Prior Amputation No -Thick No -Discolored No -Deformed No -Improper Length & Hygeine No Communication Assessment Preferred language Sinhala Test Equipment Mechanic Required No Able to Read Yes Able to Write Yes Communication Tools None Caregiver Communication Skills No Impairment Impairment Right Hearing Abillity Normal Left Hearing Abillity Normal Visual Assistive Devices Glasses Teaching Assessment Preferences Verbal,Written, Demonstration Barriers to Learning None Readiness To Learn Good Willingness to Engage in Self Management Med Activies Readiness to Engage in Self Management Med Activities Anxiety Level Calm Cooperation Cooperative Perception Coherent Interest in Health Problem Asks Questions Education Importance Acknowledges Need Does Patient Smoke tobacco or other No substances Smoking Status Former smoker Is Patient Diabetic Yes Functional Assessment Recent Decline in Ability to Perform Denies Any Declines Assistive Device With Patient Yes Culture/Episcopal/Goodwill Representative Cultural/Episcopal Needs that may affect No Treatment Plan Would you allow our hospital data control assistant to No meet you for the purpose of spiritual/ emotional support? Goodwill Representative to contact place of sikh No Teaching: Wound Center Control Swelling with Leg Elevation -Person Taught Patient,Family -Teaching Method Discussion, Demonstration -Response to teaching Return demonstration, Verbalize understanding [facility] Orientation/ Contacting Physician -Person Taught Patient,Family -Teaching Method Discussion, Demonstration -Response to teaching Return demonstration, Verbalize understanding - Nurse 1 - General Ulcer Measurement Start: 02/21/23 08:21 Freq: Status: Active Protocol: Activity Type Activity Date Activity User E-sign Co-sign Detail Recorded Client Recorded Date Recorded By Document 02/21/23 08:21 [id number] 02/21/23 08:39 Document 02/28/23 08:58 [id number] 02/28/23 09:19 02/21/23 02/28/23 08:21 08:58 Wound Center Nurse 1 1-right lateral leg cluster -Combined with other wound No No -Current Size (cm) - Length 4.5 -Current Size (cm) - Width 10.5 -Current Size (cm) - Depth 0.1 -Total Square Cm 47.25 -Photo Taken Yes -Epithelialization Small 1-33% -Tunneling No -Undermining/Tunneling No -Circular Undermining No -Exudate Amt Medium -Exudate Type Serosanguineous -Wound Margin Flat & Intact -Granulation Amt Small (1-33%) -Granulation Quality [place] -Slough/Fibrin Yes -Necrosis Amt Large (67-100%) -Necrotic Tissue Type Adherent Slough -Structure Exposed N/A -Texture (Sara-wound Skin Appearance) Assessed, Assessed Localized Edema -Moisture (Sara-wound Skin Appearance) Assessed,Dry/ Assessed Scaly -Color (Sara-wound Skin Appearance) Assessed, Assessed Hemosiderin Staining -Temperature (Sara-wound Skin No Abnormality Appearance) (Pt Warm) -Tenderness on Palpation (Sara-wound No Skin Appearance) -Ulcer Cleansing Rinsed/ Soap and Water Irrigated with Saline -Foul Odor after Cleansing No No -Anesthetic Used 5% Lidocaine 4% Lidocaine Gel Solution 3-left posterior leg cluster -Combined with other wound No No -Current Size (cm) - Length 5.0 -Current Size (cm) - Width 11 -Current Size (cm) - Depth 0.1 -Total Square Cm 55.0 -Photo Taken Yes -Epithelialization Small 1-33% -Tunneling No -Undermining/Tunneling No -Circular Undermining No -Exudate Amt Medium None Present -Exudate Type Serosanguineous -Wound Margin Flat & Intact Indistinct, Non -Visible -Granulation Amt None Present (0 None Present (0 %) %) -Slough/Fibrin Yes -Necrosis Amt Large (67-100%) -Necrotic Tissue Type Adherent Slough -Structure Exposed N/A N/A -Texture (Sara-wound Skin Appearance) Assessed, Assessed Localized Edema -Moisture (Sara-wound Skin Appearance) Assessed,Dry/ Assessed Scaly -Color (Sara-wound Skin Appearance) Assessed, Assessed Hemosiderin Staining -Temperature (Sara-wound Skin No Abnormality No Abnormality Appearance) (Pt Warm) (Pt Warm) -Tenderness on Palpation (Sara-wound No No Skin Appearance) -Ulcer Cleansing Wound Cleanser Soap and Water -Foul Odor after Cleansing No No -Anesthetic Used 5% Lidocaine 4% Lidocaine Gel Solution 2-right medial leg -Combined with other wound No No -Current Size (cm) - Length 0.5 -Current Size (cm) - Width 1.8 -Current Size (cm) - Depth 0.1 -Total Square Cm 0.90 -Photo Taken Yes -Epithelialization Small 1-33% -Tunneling No -Undermining/Tunneling No -Circular Undermining No -Exudate Amt Small -Exudate Type Serosanguineous -Wound Margin Flat & Intact -Granulation Amt None Present (0 %) -Slough/Fibrin Yes -Necrosis Amt Large (67-100%) -Necrotic Tissue Type Adherent Slough -Structure Exposed N/A -Texture (Sara-wound Skin Appearance) Assessed, Assessed Localized Edema -Moisture (Sara-wound Skin Appearance) Assessed,Dry/ Assessed Scaly -Color (Sara-wound Skin Appearance) Assessed Assessed -Temperature (Sara-wound Skin No Abnormality No Abnormality Appearance) (Pt Warm) (Pt Warm) -Tenderness on Palpation (Sara-wound No Skin Appearance) -Ulcer Cleansing Wound Cleanser Soap and Water -Foul Odor after Cleansing No No -Anesthetic Used 5% Lidocaine 4% Lidocaine Gel Solution Lower Limb Edema Present Yes Yes Right Calf (cm) 54.8 56.0 Right Ankle (cm) 32 32.4 Left Calf (cm) 54.5 55.2 Left Ankle (cm) 32.5 33.0 WC - Nurse 2 - General Ulcer CM Notes Start: 02/21/23 08:21 Freq: Status: Active Protocol: Activity Type Activity Date Activity User E-sign Co-sign Detail Recorded Client Recorded Date Recorded By Document 02/21/23 11:56 PL [id number] 02/21/23 12:01 PL Document 02/28/23 14:20 PL [id number] 02/28/23 14:24 PL 02/21/23 02/28/23 11:56 14:20 Wound Center Nurse 2 1-right lateral leg cluster -Time 08:58 -Correct Patient Yes -Correct Side, Site, Position Yes -Correct Procedure Yes -Procedure Performed Yes No -Type of Procedure Debridement -Clinical Debridement Subcutaneous -Tissue Removed Subcutaneous -Post Debridement (cm) - Length 4.0 -Post Debridement (cm) - Width 11.3 -Post Debridement (cm) - Depth 0.1 -Total Square (Post) (cm) 45.20 -Area of Debridement (cm) - Length 4.0 -Area of Debridement (cm) - Width 11.3 -Total Square (Area) (cm) 45.20 -Tunneling No -Undermining/Tunneling No -Circular Undermining No -Wound/Ulcer Outcome Not Healed Healed- Epithelialized -Ulcer Cleansing Rinsed/ Irrigated with Saline -Foul Odor after Cleansing No -Bioengineered Tissue No -Bleeding Controlled with Pressure -Treatment Response Procedure Tolerated Well -Debridement - Subq, 1st 20sq cm No 3-left posterior leg cluster -Time 08:08 09:32 -Correct Patient Yes Yes -Correct Side, Site, Position Yes Yes -Correct Procedure Yes Yes -Procedure Performed Yes Yes -Type of Procedure Debridement Debridement -Clinical Debridement Subcutaneous Subcutaneous -Tissue Removed Subcutaneous Subcutaneous -Post Debridement (cm) - Length 8.7 4.5 -Post Debridement (cm) - Width 13.3 12.3 -Post Debridement (cm) - Depth 0.1 0.1 -Total Square (Post) (cm) 115.71 55.35 -Area of Debridement (cm) - Length 8.7 4.5 -Area of Debridement (cm) - Width 13.3 12.3 -Total Square (Area) (cm) 115.71 55.35 -Tunneling No No -Undermining/Tunneling No No -Circular Undermining No No -Wound/Ulcer Outcome Not Healed Not Healed -Ulcer Cleansing Rinsed/ Rinsed/ Irrigated with Irrigated with Saline Saline -Foul Odor after Cleansing No No -Bioengineered Tissue No No -Bleeding Controlled with Pressure Pressure -Treatment Response Procedure Procedure Tolerated Well Tolerated Well -Debridement - Subq, 1st 20sq cm Yes No -Debridement, SubQ, ea addt'l 20sq cm 8 or part thereof 2-right medial leg -Time 08:58 09:32 -Correct Patient Yes Yes -Correct Side, Site, Position Yes Yes -Correct Procedure Yes Yes -Procedure Performed Yes Yes -Type of Procedure Debridement Debridement -Clinical Debridement Subcutaneous Subcutaneous -Tissue Removed Subcutaneous Subcutaneous -Post Debridement (cm) - Length 0.9 4.0 -Post Debridement (cm) - Width 1.2 6.1 -Post Debridement (cm) - Depth 0.1 0.1 -Total Square (Post) (cm) 1.08 24.40 -Area of Debridement (cm) - Length 0.9 4.0 -Area of Debridement (cm) - Width 1.2 6.1 -Total Square (Area) (cm) 1.08 24.40 -Tunneling No No -Undermining/Tunneling No No -Circular Undermining No No -Wound/Ulcer Outcome Not Healed Not Healed -Ulcer Cleansing Rinsed/ Rinsed/ Irrigated with Irrigated with Saline Saline -Foul Odor after Cleansing No No -Bioengineered Tissue No No -Bleeding Controlled with Pressure Pressure -Treatment Response Procedure Procedure Tolerated Well Tolerated Well -Debridement - Subq, 1st 20sq cm No Yes -Debridement, SubQ, ea addt'l 20sq cm 3 or part thereof Pain Scale: 0-10 Numeric Is Patient Pain Free? Yes Yes - Nurse 3 - General Ulcer D/C NN Start: 02/21/23 08:21 Freq: Status: Active Protocol: Activity Type Activity Date Activity User E-sign Co-sign Detail Recorded Client Recorded Date Recorded By Document 02/21/23 10:08 [id number] 02/21/23 10:09 Document 02/28/23 10:34 [id number] 02/28/23 10:36 02/21/23 02/28/23 10:08 10:34 Wound Care Center Nurse 3 1-right lateral leg cluster -Ulcer Cleansing Rinsed/ Rinsed/ Irrigated with Irrigated with Saline Saline -Foul Odor after Cleansing No No -Primary Dressing Applied Aquacel AG 4x4 -Primary Dressing Covered/Secured with Dry Gauze & Dry Gauze & Roll Gauze, Roll Gauze, Secured with Secured with Tape Tape -Aquacel AG 4x4 0 3-left posterior leg cluster -Ulcer Cleansing Rinsed/ Rinsed/ Irrigated with Irrigated with Saline Saline -Foul Odor after Cleansing No -Primary Dressing Applied Aquacel AG 4x4, Aquacel AG 4x4 Optilok 6.5x10 -Primary Dressing Covered/Secured with Dry Gauze & Dry Gauze & Roll Gauze, Roll Gauze, Secured with Secured with Tape Tape -Aquacel AG 4x4 1 1 -Optilok 6.5x10 1 2-right medial leg -Ulcer Cleansing Rinsed/ Rinsed/ Irrigated with Irrigated with Saline Saline -Foul Odor after Cleansing No No -Primary Dressing Applied Aquacel AG 4x4 Aquacel AG 4x4 -Primary Dressing Covered/Secured with Dry Gauze & Dry Gauze & Roll Gauze, Roll Gauze, Secured with Secured with Tape Tape -Aquacel AG 4x4 1 1 Right -Tubular Bandage Single Layer -Size of Tubigrip Used Size F -Size F ($) 2 Left -Tubular Bandage Single Layer -Size of Tubigrip Used Size F -Size F ($) 2 Pain Scale: 0-10 Numeric Is Patient Pain Free? Yes Yes - Visit Discharge Discharge Condition Stable Stable Ambulatory Status Ambulatory Ambulatory Transportation Private Auto Private Auto Accompanied by Medication Reconcilliation completed & No No provided to patient/care provider Clinical Summary of Care Provided No Yes Additional Wound Wound debrided: L posterior calf Laterality: Left Type of Debridement: Excisional debridement Anesthesia Used: 5% Lidocaine Gel Depth: Down to and including healthy tissue Percentage of wound debrided: 100 Instrument Used: 7mm curette Tissue Removed: slough, devitalized tissue Assessment/Plan Assessment/Plan (1) Non-pressure chronic ulcer left lower leg, limited to breakdown skin: CODE(S): L97.921 - Non-pressure chronic ulcer of unspecified part of left lower leg limited to breakdown of skin (2) Non-pressure chronic ulcer right lower leg, limited to breakdown skin: CODE(S): L97.911 - Non-pressure chronic ulcer of unspecified part of right lower leg limited to breakdown of skin (3) Bilateral lower extremity edema: CODE(S): R60.0 - Localized edema PLAN: Plan Both RLE and LLE wounds have decreased in size by well over 50% since last week. Continue Aquacel silver to all wound bases, wrap with Kerlix. Change dressings at least once daily or more often as needed to keep clean and dry. Wash ulcers with gentle soap and water and pat dry with dressing changes. Do not submerge wounds in water. Continue with high-strength compression with double tubigrips this week. Discussed with patient the importance of elevating his feet whenever resting or sleeping. Avoid prolonged standing or sitting with feet dependent. Also advised patient to increase protein decrease sugar/carbs in his diet is to encourage wound healing. He will return in 2 weeks or sooner as needed.
[2023-03-07 08:17] VITALS: BP 171/78; PULSE 69; RESP 22; TEMP 36.4; BMI 52.9
== END 2023-03-14 23:59 | disposition home or self-care (01) ==
LOC: WC 08:15
PROVIDERS: PCP Family Medicine; Referring Provider Family Medicine; Visit Provider Physician Assistant
DX: E11.622 Type 2 diabetes mellitus with other skin ulcer (principal); L97.921 Non-pressure chronic ulcer of unspecified part of left lower leg limited to breakdown of skin; L97.911 Non-pressure chronic ulcer of unspecified part of right lower leg limited to breakdown of skin; Z96.653 Presence of artificial knee joint, bilateral; M25.562 Pain in left knee; Z87.891 Personal history of nicotine dependence; G89.29 Other chronic pain; M25.561 Pain in right knee; R60.0 Localized edema
CPT/HCPCS: 11042; 11045; 29581; 93970; 99214; G0463

== ENCOUNTER 2023-03-28 07:57 | Outpatient (RCR) | payer OTHER, MEDICAID, SELFPAY ==
[2023-03-15 00:22] VITALS: BP 171/78; PULSE 69; RESP 22; TEMP 36.4; BMI 52.9
[2023-03-28 08:07] VITALS: BP 195/85; PULSE 74; RESP 20; TEMP 36.3; BMI 52.9
--- NOTE | 2023-03-28 09:01 | PN.PCM_ITS ---
History of Present Illness Date of Service: 03/28/23 Chief Complaint: Bilateral lower leg ulcerations History of Wound: Patient presents to [facility] today as referred by his PCP for evaluation and management of bilateral lower extremity ulcers. He is accompanied to his appointment today by his . These wounds have been present for several weeks. He is currently on Bactrim as prescribed by his PCP. Washing with soap and water and covering with gauze currently. He has had recurrent ulcerations of bilateral lower extremities for the last 7-8 years. He reports they typically occur from very minor trauma to his lower legs, sometimes they develop unprovoked. In the past, PCP has treated with Unna boots and the ulcers will heal up, but they always recur within a few weeks to a month. He does have significant bilateral lower extremity edema. He does not wear compression, he has tried non-measured compression stockings in the past but they did not fit him well and he had a difficult time putting them on. He estimates he has had about 6 prior venous ablations by Dr. Carlisle but has not followed up with him in a few years. He does not feel the ablations seemed to help. He is also currently taking Lasix for his BLE edema, helping somewhat. This is all complicated by his bilateral knee pain and chronic back pain. Another reason he does not wear compression is because he feels it increases the swelling and pain in his knees. He has been told he needs both knees replaced, but they will not do the surgery until he loses weight which he refuses to attempt to do. He also sleeps in a recliner due to his chronic back pain. He props his feet up on a stool, but this does not elevate them to the level of his heart. He is diabetic, fairly well-controlled. He is a former smoker, quit about 5 years ago. He denies history of arterial disease or intervention, VTE. No lymphedema diagnosis. Subjective Subjective He missed his appt last week. He has not been wearing compression consistently as directed. He has been swimming frequently over the last 2 weeks. 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 Prior wounds on the posterior aspect of the LLE are he aled. Wound on posterior R lower leg improved in size. No signs/symptoms of infection. Objective Data Objective Data Vital Signs: Vital Signs Temp Pulse Resp BP 97.4 F L 74 20 H 195/85 H 03/28/23 08:07 03/28/23 08:07 03/28/23 08:07 03/28/23 08:07 Weight: 380 lb Body Mass Index (BMI) 52.9 Charges/Coding Visit Charges Office Visits / Consults: 55154 OV L3 Est Physical Exam Const alert, oriented x3 and no apparent distress Nutritional Appearance: morbidly obese HEENT normocephalic, head/scalp atraumatic, hearing grossly normal bilaterally, external ears normal and external nose normal Eyes EOMs intact bilaterally General Eye: normal appearance of both eyes Neck General: normal visual inspection and trachea midline Resp normal respiratory effort, normal air movement, no retractions, no use of accessory muscles and clear to auscultation bilaterally Effort and Inspection: able to speak in complete sentences; Negative for labored or stridor Cardio regular rate, regular rhythm and peripheral pulses 2+ throughout Extremity Extremity Narrative: Significant bilateral lower extremity edema. No visible varicosities. No pallor or cyanotic discoloration. Palpable DP pulses. Skin Skin Narrative: Bilateral lipodermatosclerosis, hemosiderin staining. R posterolateral calf cluster minimal slough this week, very superficial and improved in appearance from last visit. L posterior calf ulceration healed. New L abarca cluster superficial, no slough, pink granulation tissue. Neuro oriented x3, CN's II-XII intact bilaterally, moves all extremities and no focal motor deficits Speech: speech normal Psych Appearance: grossly normal Attitude: calm Activity / Motor Behavior: appropriate eye contact Speech: normal speech Debridement Note Debridement Note Wound debrided: R posterolateral lower leg cluster Laterality: Right No debridement was completed: No debridement was completed today Post-Debridement Measurements and Additional Note: Post-Debridement Measurements/Treatment WC - Nurse 1 - General Ulcer Assessment Start: 03/28/23 08:06 Freq: Status: Active Protocol: RENETTA Activity Type Activity Date Activity User E-sign Co-sign Detail Recorded Client Recorded Date Recorded By Document 03/28/23 08:07 KVNG [id number] 03/28/23 08:13 KVNG 03/28/23 08:07 WC - Today's Visit Information Type of service Follow-up Visit (Physician/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 ) Arrival Mode Ambulatory Transfer Assistance None Patient Identification Verified (Name & Yes ) Patient Requires Transmission-Based No Precautions Height and Weight Body Mass Index (BMI) 52.9 BMI Classification Obese Vital Signs Temperature (97.8 F-99.1 F) 97.4 F L Temperature Source Temporal Pulse Rate (60-100) 74 Pulse Location Monitor Respiratory Rate (12-18) 20 H Respiratory rate source Observation Blood Pressure (90/60-120/80) 195/85 H Blood Pressure Mean (mm Hg) 121 Source Monitor History Since Last Visit- (Skip if this is Patient's initial visit) Have you changed medications since your No last visit? Any new allergies or adverse reactions No Had a fall/change in ADL's that may No increase risk of falls Signs or symptoms of abuse and/or No neglect since last visit Have you been in the hospital since your No last visit? Has dressing in place as prescribed No Has compression in place as prescribed Yes Has offloadiing in place as prescribed N/A Experienced any changes in pain level or No management Pain Scale: 0-10 Numeric Is Patient Pain Free? Yes WC - Nurse 1 - General Ulcer Measurement Start: 03/28/23 08:06 Freq: Status: Active Protocol: Activity Type Activity Date Activity User E-sign Co-sign Detail Recorded Client Recorded Date Recorded By Document 03/28/23 08:07 KVNG [id number] 03/28/23 08:13 DL 03/28/23 08:07 Wound Center Nurse 1 3-left posterior leg cluster -Current Size (cm) - Length 0.1 -Current Size (cm) - Width 0.1 -Current Size (cm) - Depth 0.1 -Total Square Cm 0.01 -Exudate Amt None Present -Wound Margin Flat & Intact -Granulation Amt Large (67-100%) -Granulation Quality [place] -Necrosis Amt None Present (0 %) -Structure Exposed N/A -Texture (Sara-wound Skin Appearance) Scarring -Moisture (Sara-wound Skin Appearance) Dry/Scaly -Color (Sara-wound Skin Appearance) Hemosiderin Staining -Temperature (Sara-wound Skin No Abnormality Appearance) (Pt Warm) -Tenderness on Palpation (Sara-wound No Skin Appearance) -Ulcer Cleansing Soap and Water -Foul Odor after Cleansing No -Anesthetic Used 5% Lidocaine Gel 2-rightlat leg -Current Size (cm) - Length 1 -Current Size (cm) - Width 1 -Current Size (cm) - Depth 0.1 -Total Square Cm 1 -Exudate Amt Small -Exudate Type Serosanguineous -Wound Margin Distinct, Outline Attached -Granulation Amt Large (67-100%) -Granulation Quality [place] -Necrosis Amt Small (1-33%) -Necrotic Tissue Type Adherent Slough -Structure Exposed N/A -Texture (Sara-wound Skin Appearance) Scarring -Moisture (Sara-wound Skin Appearance) Dry/Scaly -Color (Sara-wound Skin Appearance) Hemosiderin Staining -Temperature (Sara-wound Skin No Abnormality Appearance) (Pt Warm) -Tenderness on Palpation (Sara-wound No Skin Appearance) -Ulcer Cleansing Soap and Water -Anesthetic Used 5% Lidocaine Gel Right Calf (cm) 56 Right Ankle (cm) 33 Left Calf (cm) 55.5 Left Ankle (cm) 32.5 Additional Wound Wound debrided: L abarca cluster Laterality: Left Assessment/Plan Assessment/Plan (1) Non-pressure chronic ulcer left lower leg, limited to breakdown skin: CODE(S): L97.921 - Non-pressure chronic ulcer of unspecified part of left lower leg limited to breakdown of skin (2) Non-pressure chronic ulcer right lower leg, limited to breakdown skin: CODE(S): L97.911 - Non-pressure chronic ulcer of unspecified part of right lower leg limited to breakdown of skin (3) Bilateral lower extremity edema: CODE(S): R60.0 - Localized edema PLAN: Plan Prior L posterior calf wound healed. R posterior calf wound significantly improved in size. New wounds to L abarca secondary to minor trauma to the area. Continue Aquacel silver to all wound bases, wrap with Kerlix. Change dressings at least once daily or more often as needed to keep clean and dry. Wash ulcers with gentle soap and water and pat dry with dressing changes. I emphasized to patient that he is not to submerge wounds in water, including swimming pool, as this puts him at increased risk of infection. Continue with high-strength compression with double tubigrips this week. Emphasized the importance of compliance with compression. Emphasized the importance of elevating his feet whenever resting or sleeping. Avoid prolonged standing or sitting with feet dependent. Also advised patient to increase protein decrease sugar/carbs in his diet is to encourage wound healing. He will return in 2 weeks or sooner as needed.
== END 2023-04-14 23:59 | disposition home or self-care (01) ==
LOC: WC 07:57
PROVIDERS: PCP Family Medicine; Referring Provider Family Medicine; Visit Provider Physician Assistant
DX: E11.622 Type 2 diabetes mellitus with other skin ulcer (principal); L97.921 Non-pressure chronic ulcer of unspecified part of left lower leg limited to breakdown of skin; L97.911 Non-pressure chronic ulcer of unspecified part of right lower leg limited to breakdown of skin; M54.9 Dorsalgia, unspecified; Z87.891 Personal history of nicotine dependence; Z96.653 Presence of artificial knee joint, bilateral; G89.29 Other chronic pain; M25.561 Pain in right knee; M25.562 Pain in left knee; R60.0 Localized edema
CPT/HCPCS: 99213; G0463

== ENCOUNTER 2023-05-08 16:00 | Outpatient (RCR) | payer OTHER, SELFPAY ==
[2023-04-15 00:28] VITALS: BP 195/85; PULSE 74; RESP 20; TEMP 36.3; BMI 52.9
[2023-04-18 08:16] VITALS: RESP 18; TEMP 36.6; BMI 52.9
--- NOTE | 2023-04-18 10:07 | PCM.WC.PN ---
History of Present Illness Date of Service: 04/18/23 Chief Complaint: Bilateral lower leg ulcerations History of Wound: Patient presents to [facility] today as referred by his PCP for evaluation and management of bilateral lower extremity ulcers. He is accompanied to his appointment today by his . These wounds have been present for several weeks. He is currently on Bactrim as prescribed by his PCP. Washing with soap and water and covering with gauze currently. He has had recurrent ulcerations of bilateral lower extremities for the last 7-8 years. He reports they typically occur from very minor trauma to his lower legs, sometimes they develop unprovoked. In the past, PCP has treated with Unna boots and the ulcers will heal up, but they always recur within a few weeks to a month. He does have significant bilateral lower extremity edema. He does not wear compression, he has tried non-measured compression stockings in the past but they did not fit him well and he had a difficult time putting them on. He estimates he has had about 6 prior venous ablations by Dr. Carlisle but has not followed up with him in a few years. He does not feel the ablations seemed to help. He is also currently taking Lasix for his BLE edema, helping somewhat. This is all complicated by his bilateral knee pain and chronic back pain. Another reason he does not wear compression is because he feels it increases the swelling and pain in his knees. He has been told he needs both knees replaced, but they will not do the surgery until he loses weight which he refuses to attempt to do. He also sleeps in a recliner due to his chronic back pain. He props his feet up on a stool, but this does not elevate them to the level of his heart. He is diabetic, fairly well-controlled. He is a former smoker, quit about 5 years ago. He denies history of arterial disease or intervention, VTE. No lymphedema diagnosis. Subjective Subjective Still with wound that was result of a scrape to L abarca/calf. RLE wounds remain healed. He continues to use the pool against advisement. Unfortunately, unable to elevate his legs due to chronic back pain. Otherwise, continuing with wound care and compression as directed. Objective Data Objective Data Vital Signs: Vital Signs Temp Pulse Resp BP 97.9 F 74 18 195/85 H 04/18/23 08:16 04/15/23 00:28 04/18/23 08:16 04/15/23 00:28 Weight: 380 lb Body Mass Index (BMI) 52.9 Charges/Coding Procedures Integumentary [id number]: [id number] Eusebia subq tissue 20 sq cm/< Physical Exam Const alert, oriented x3 and no apparent distress Nutritional Appearance: morbidly obese Resp normal respiratory effort and no retractions Effort and Inspection: able to speak in complete sentences; Negative for labored or stridor Cardio regular rate, regular rhythm and peripheral pulses 2+ throughout Extremity Extremity Narrative: Significant bilateral lower extremity edema. No visible varicosities. No pallor or cyanotic discoloration. Palpable DP pulses. Skin Skin Narrative: Bilateral lipodermatosclerosis, hemosiderin staining. New L abarca cluster superficial, no slough, pink granulation tissue. Debridement Note Debridement Note Wound debrided: L abarca/calf Laterality: Left Type of Debridement: Excisional debridement Anesthesia Used: 5% Lidocaine Gel Depth: Down to and including healthy tissue Percentage of wound debrided: 100 Instrument Used: 5mm curette Tissue Removed: slough, devitalized tissue Severity: Limited To Skin Breakdown Amount of bleeding with debridement: Mild Bleeding Controlled with: Pressure Patient tolerated procedure: Patient tolerated procedure well Post-Debridement Measurements and Additional Note: Post-Debridement Measurements/Treatment - Nurse 1 - General Ulcer Assessment Start: 04/18/23 08:16 Freq: Status: Active Protocol: RENETTA Activity Type Activity Date Activity User E-sign Co-sign Detail Recorded Client Recorded Date Recorded By Document 04/18/23 08:16 [id number] 04/18/23 08:26 04/18/23 08:16 - Today's Visit Information Type of service Follow-up Visit (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 Any new allergies or adverse reactions No Had a fall/change in ADL's that may No increase risk of falls Signs or symptoms of abuse and/or No neglect since last visit Have you been in the hospital since your No last visit? Has dressing in place as prescribed Yes Has compression in place as prescribed No Has offloadiing in place as prescribed N/A Experienced any changes in pain level or No management Left Footwear Regular Shoe Right Footwear Regular Shoe Pain Scale: 0-10 Numeric Is Patient Pain Free? Yes WC - Nurse 1 - General Ulcer Measurement Start: 04/18/23 08:16 Freq: Status: Active Protocol: Activity Type Activity Date Activity User E-sign Co-sign Detail Recorded Client Recorded Date Recorded By Document 04/18/23 08:16 KOLTON [id number] 04/18/23 08:26 KOLTON 04/18/23 08:16 Wound Center Nurse 1 3-left posterior leg cluster -Combined with other wound No -Current Size (cm) - Length 6.0 -Current Size (cm) - Width 5.5 -Current Size (cm) - Depth 0.1 -Total Square Cm 33.00 -Photo Taken Yes -Epithelialization Small 1-33% -Tunneling No -Undermining/Tunneling No -Circular Undermining No -Exudate Amt Small -Exudate Type Serosanguineous -Wound Margin Flat & Intact -Granulation Amt Medium (34-66%) -Granulation Quality Red -Slough/Fibrin Yes -Necrosis Amt Medium (34-66%) -Necrotic Tissue Type Adherent Slough -Structure Exposed N/A -Texture (Sara-wound Skin Appearance) Assessed, Localized Edema -Moisture (Sara-wound Skin Appearance) Assessed,Dry/ Scaly -Color (Sara-wound Skin Appearance) Assessed -Temperature (Sara-wound Skin No Abnormality Appearance) (Pt Warm) -Tenderness on Palpation (Sara-wound No Skin Appearance) -Ulcer Cleansing Rinsed/ Irrigated with Saline -Foul Odor after Cleansing No -Anesthetic Used 5% Lidocaine Gel 2-rightlat leg -Combined with other wound No -Current Size (cm) - Length 0 -Current Size (cm) - Width 0 -Current Size (cm) - Depth 0 -Total Square Cm 0 -Photo Taken Yes -Epithelialization Large 67-100% Lower Limb Edema Present Yes Right Calf (cm) 56 Right Ankle (cm) 32 Left Calf (cm) 54.3 Left Ankle (cm) 32.5 Assessment/Plan Assessment/Plan (1) Non-pressure chronic ulcer left lower leg, limited to breakdown skin: CODE(S): L97.921 - Non-pressure chronic ulcer of unspecified part of left lower leg limited to breakdown of skin (2) Bilateral lower extremity edema: CODE(S): R60.0 - Localized edema PLAN: Plan Prior L posterior calf wound healed. R posterior calf wound healed. New wounds to L anterior abarca/calf cluster smaller in size, some slough/dried drainage, good granulation tissue. Continue Aquacel silver to wound bases, wrap with Kerlix. Change dressings at least once daily or more often as needed to keep clean and dry. Wash ulcers with gentle soap and water and pat dry with dressing changes. I emphasized to patient that he is not to submerge wounds in water, including swimming pool, as this puts him at increased risk of infection. Continue with high-strength compression with double tubigrips this week. Emphasized the importance of compliance with compression. Emphasized the importance of elevating his feet whenever resting or sleeping as tolerated. Avoid prolonged standing or sitting with feet dependent. Also advised patient to increase protein decrease sugar/carbs in his diet is to encourage wound healing. He will return in 2 weeks or sooner as needed.
[2023-05-08 16:07] VITALS: BP 166/83; PULSE 75; RESP 22; TEMP 36.4; BMI 52.9
--- NOTE | 2023-05-09 13:24 | PCM.WC.PN ---
History of Present Illness Date of Service: 05/09/23 Chief Complaint: Bilateral lower leg ulcerations History of Wound: Patient presents to [facility] today as referred by his PCP for evaluation and management of bilateral lower extremity ulcers. He is accompanied to his appointment today by his . These wounds have been present for several weeks. He is currently on Bactrim as prescribed by his PCP. Washing with soap and water and covering with gauze currently. He has had recurrent ulcerations of bilateral lower extremities for the last 7-8 years. He reports they typically occur from very minor trauma to his lower legs, sometimes they develop unprovoked. In the past, PCP has treated with Unna boots and the ulcers will heal up, but they always recur within a few weeks to a month. He does have significant bilateral lower extremity edema. He does not wear compression, he has tried non-measured compression stockings in the past but they did not fit him well and he had a difficult time putting them on. He estimates he has had about 6 prior venous ablations by Dr. Carlisle but has not followed up with him in a few years. He does not feel the ablations seemed to help. He is also currently taking Lasix for his BLE edema, helping somewhat. This is all complicated by his bilateral knee pain and chronic back pain. Another reason he does not wear compression is because he feels it increases the swelling and pain in his knees. He has been told he needs both knees replaced, but they will not do the surgery until he loses weight which he refuses to attempt to do. He also sleeps in a recliner due to his chronic back pain. He props his feet up on a stool, but this does not elevate them to the level of his heart. He is diabetic, fairly well-controlled. He is a former smoker, quit about 5 years ago. He denies history of arterial disease or intervention, VTE. No lymphedema diagnosis. Subjective Subjective Patient has another new wound cluster on his RLE, reports he bumped his leg on something which led to this. States he is wearing compression as directed. LLE wound cluster stable. Objective Data Objective Data Vital Signs: Vital Signs Temp Pulse Resp BP 97.5 F L 75 22 H 166/83 H 05/08/23 16:07 05/08/23 16:07 05/08/23 16:07 05/08/23 16:07 Weight: 380 lb Body Mass Index (BMI) 52.9 Charges/Coding Procedures Integumentary 111xxx-113xx: [id number] Eusebia subq tissue 20 sq cm/< Physical Exam Const alert, oriented x3 and no apparent distress Nutritional Appearance: morbidly obese Resp normal respiratory effort and no retractions Effort and Inspection: able to speak in complete sentences; Negative for labored or stridor Cardio regular rate, regular rhythm and peripheral pulses 2+ throughout Extremity Extremity Narrative: Bilateral lower extremity edema. No visible varicosities. No pallor or cyanotic discoloration. Palpable DP pulses. Skin Skin Narrative: Significant bilateral lipodermatosclerosis, hemosiderin staining. L abarca cluster superficial, no slough, pink granulation tissue. New R calf cluster, superficial, minimal slough, pink granulation tissue. Debridement Note Debridement Note Wound debrided: L abarca/calf Laterality: Left Type of Debridement: Excisional debridement Anesthesia Used: 5% Lidocaine Gel Depth: Down to and including healthy tissue Percentage of wound debrided: 100 Instrument Used: 5mm curette Tissue Removed: slough, devitalized tissue Severity: Limited To Skin Breakdown Amount of bleeding with debridement: Mild Bleeding Controlled with: Pressure Patient tolerated procedure: Patient tolerated procedure well Post-Debridement Measurements and Additional Note: Post-Debridement Measurements/Treatment - Nurse 1 - General Ulcer Assessment Start: 04/18/23 08:16 Freq: Status: Active Protocol: RENETTA Activity Type Activity Date Activity User E-sign Co-sign Detail Recorded Client Recorded Date Recorded By Document 04/18/23 08:16 [id number] 04/18/23 08:26 Document 05/08/23 16:07 DL [id number] 05/08/23 16:13 DL Edit Result 05/08/23 16:07 DL (1) [id number] 05/08/23 16:14 DL (1) Blood Pressure (90/60-120/80) 190/89 H => 166/83 H Blood Pressure Mean (mm Hg) 122 => 110 04/18/23 05/08/23 08:16 16:07 - Today's Visit Information Type of service Follow-up Visit Follow-up Visit (Physician/SUPERINTENDENT MAINTENANCE (Physician/SUPERINTENDENT MAINTENANCE ) ) Arrival Mode Ambulatory Ambulatory Transfer Assistance None Patient Identification Verified (Name & Yes Yes ) Patient Requires Transmission-Based No No Precautions Height and Weight Body Mass Index (BMI) 52.9 52.9 BMI Classification Obese Obese Vital Signs Temperature (97.8 F-99.1 F) 97.9 F 97.5 F L Temperature Source Temporal Temporal Pulse Rate (60-100) 75 Pulse Location Monitor Respiratory Rate (12-18) 18 22 H Respiratory rate source Observation Observation Blood Pressure (90/60-120/80) 166/83 H Blood Pressure Mean (mm Hg) 110 History Since Last Visit- (Skip if this is Patient's initial visit) Have you changed medications since your No No last visit? Any new allergies or adverse reactions No No Had a fall/change in ADL's that may No No increase risk of falls Signs or symptoms of abuse and/or No No neglect since last visit Have you been in the hospital since your No No last visit? Has dressing in place as prescribed Yes Yes Has compression in place as prescribed No Yes Has offloadiing in place as prescribed N/A N/A Experienced any changes in pain level or No No management Left Footwear Regular Shoe Right Footwear Regular Shoe Pain Scale: 0-10 Numeric Is Patient Pain Free? Yes Yes WC - Nurse 1 - General Ulcer Measurement Start: 04/18/23 08:16 Freq: Status: Active Protocol: Activity Type Activity Date Activity User E-sign Co-sign Detail Recorded Client Recorded Date Recorded By Document 04/18/23 08:16 [id number] 04/18/23 08:26 Document 05/08/23 16:07 DL [id number] 05/08/23 16:13 DL 04/18/23 05/08/23 08:16 16:07 Wound Center Nurse 1 2-rightlat leg -Combined with other wound No -Current Size (cm) - Length 0 -Current Size (cm) - Width 0 -Current Size (cm) - Depth 0 -Total Square Cm 0 -Photo Taken Yes -Epithelialization Large 67-100% #4 RLE post cluster -Current Size (cm) - Length 1.5 -Current Size (cm) - Width 2.4 -Current Size (cm) - Depth 0.1 -Total Square Cm 3.60 -Photo Taken Yes -Classification - Thickness Full Thickness without Exposed Support Structure -Exudate Amt Medium -Exudate Type Serous -Wound Margin Distinct, Outline Attached -Granulation Amt Large (67-100%) -Granulation Quality Red -Necrosis Amt Small (1-33%) -Necrotic Tissue Type Adherent Slough -Structure Exposed N/A -Texture (Sara-wound Skin Appearance) Scarring -Moisture (Sara-wound Skin Appearance) Dry/Scaly -Color (Sara-wound Skin Appearance) Hemosiderin Staining -Temperature (Sara-wound Skin No Abnormality Appearance) (Pt Warm) -Ulcer Cleansing Soap and Water -Foul Odor after Cleansing No -Anesthetic Used 5% Lidocaine Gel 3-left posterior leg cluster -Combined with other wound No -Current Size (cm) - Length 6.0 4.5 -Current Size (cm) - Width 5.5 10 -Current Size (cm) - Depth 0.1 0.1 -Total Square Cm 33.00 45.0 -Photo Taken Yes -Epithelialization Small 1-33% -Tunneling No -Undermining/Tunneling No -Circular Undermining No -Exudate Amt Small Medium -Exudate Type Serosanguineous Serosanguineous -Wound Margin Flat & Intact Distinct, Outline Attached -Granulation Amt Medium (34-66%) Medium (34-66%) -Granulation Quality Red Red -Slough/Fibrin Yes -Necrosis Amt Medium (34-66%) Medium (34-66%) -Necrotic Tissue Type Adherent Slough Adherent Slough -Structure Exposed N/A N/A -Texture (Sara-wound Skin Appearance) Assessed, Scarring Localized Edema -Moisture (Sara-wound Skin Appearance) Assessed,Dry/ Dry/Scaly Scaly -Color (Sara-wound Skin Appearance) Assessed Hemosiderin Staining -Temperature (Sara-wound Skin No Abnormality No Abnormality Appearance) (Pt Warm) (Pt Warm) -Tenderness on Palpation (Sara-wound No No Skin Appearance) -Ulcer Cleansing Rinsed/ Soap and Water Irrigated with Saline -Foul Odor after Cleansing No No -Anesthetic Used 5% Lidocaine 5% Lidocaine Gel Gel Lower Limb Edema Present Yes Right Calf (cm) 56 56.4 Right Ankle (cm) 32 31 Left Calf (cm) 54.3 54.7 Left Ankle (cm) 32.5 31.5 WC - Nurse 2 - General Ulcer CM Notes Start: 04/18/23 08:16 Freq: Status: Active Protocol: Activity Type Activity Date Activity User E-sign Co-sign Detail Recorded Client Recorded Date Recorded By Document 04/18/23 12:11 PL [id number] 04/18/23 12:12 PL Document 05/08/23 17:54 PL [id number] 05/08/23 17:59 PL Edit Result 05/08/23 17:54 PL (1) [id number] 05/09/23 07:40 PL (1) 3-left posterior leg cluster - Debridement, SubQ, ea addt'l 20sq cm => 1 or part thereof 04/18/23 05/08/23 12:11 17:54 Wound Center Nurse 2 2-rightlat leg -Procedure Performed No -Wound/Ulcer Outcome Healed- Epithelialized #4 RLE post cluster -Time 16:25 -Correct Patient Yes -Correct Side, Site, Position Yes -Correct Procedure Yes -Procedure Performed Yes -Type of Procedure Debridement -Clinical Debridement Subcutaneous -Tissue Removed Subcutaneous -Post Debridement (cm) - Length 1.8 -Post Debridement (cm) - Width 2.5 -Post Debridement (cm) - Depth 0.1 -Total Square (Post) (cm) 4.50 -Area of Debridement (cm) - Length 1.8 -Area of Debridement (cm) - Width 2.5 -Total Square (Area) (cm) 4.50 -Tunneling No -Undermining/Tunneling No -Circular Undermining No -Wound/Ulcer Outcome Not Healed -Ulcer Cleansing Rinsed/ Irrigated with Saline -Foul Odor after Cleansing No -Bioengineered Tissue No -Bleeding Controlled with Pressure -Treatment Response Procedure Tolerated Well -Debridement - Subq, 1st 20sq cm No 3-left posterior leg cluster -Time 09:14 16:25 -Correct Patient Yes Yes -Correct Side, Site, Position Yes Yes -Correct Procedure Yes Yes -Procedure Performed Yes Yes -Type of Procedure Debridement Debridement -Clinical Debridement Subcutaneous Subcutaneous -Tissue Removed Subcutaneous Subcutaneous -Post Debridement (cm) - Length 6.0 5.4 -Post Debridement (cm) - Width 5.5 3.2 -Post Debridement (cm) - Depth 0.1 0.2 -Total Square (Post) (cm) 33.00 17.28 -Area of Debridement (cm) - Length 6.0 5.4 -Area of Debridement (cm) - Width 5.5 3.2 -Total Square (Area) (cm) 33.00 17.28 -Tunneling No No -Undermining/Tunneling No No -Circular Undermining No No -Wound/Ulcer Outcome Not Healed -Ulcer Cleansing Rinsed/ Irrigated with Saline -Foul Odor after Cleansing No -Bioengineered Tissue No -Bleeding Controlled with Pressure -Treatment Response Procedure Tolerated Well -Debridement - Subq, 1st 20sq cm Yes Yes -Debridement, SubQ, ea addt'l 20sq cm 1 1 or part thereof Pain Scale: 0-10 Numeric Is Patient Pain Free? Yes Yes - Nurse 3 - General Ulcer D/C NN Start: 04/18/23 08:16 Freq: Status: Active Protocol: Activity Type Activity Date Activity User E-sign Co-sign Detail Recorded Client Recorded Date Recorded By Document 05/08/23 16:44 [facility] [id number] 05/08/23 16:45 [facility] 05/08/23 16:44 Wound Care Center Nurse 3 #4 RLE post cluster -Ulcer Cleansing Rinsed/ Irrigated with Saline -Foul Odor after Cleansing No -Primary Dressing Applied Aquacel Extra, Mepilex Border -Aquacel Extra 1 -Mepilex Border 1 3-left posterior leg cluster -Ulcer Cleansing Rinsed/ Irrigated with Saline -Foul Odor after Cleansing No -Primary Dressing Applied Aquacel Extra, Mepilex Border -Aquacel Extra 1 -Mepilex Border 1 BLE -Tubular Bandage Double Layer -Size of Tubigrip Used Size F -Size F ($) 4 -Other SENT EXTRA Treatment Response Procedure Tolerated Well Pain Scale: 0-10 Numeric Is Patient Pain Free? Yes - Visit Discharge Discharge Condition Stable Ambulatory Status Ambulatory Transportation Private Auto Additional Wound Wound debrided: R calf Laterality: Right Type of Debridement: Excisional debridement Anesthesia Used: 5% Lidocaine Gel Depth: Down to and including healthy tissue Percentage of wound debrided: 100 Instrument Used: 5mm curette Tissue Removed: slough Amount of bleeding with debridement: Mild Bleeding Controlled with: Pressure Patient tolerated procedure: Patient tolerated procedure well Assessment/Plan Assessment/Plan (1) Non-pressure chronic ulcer left lower leg, limited to breakdown skin: CODE(S): L97.921 - Non-pressure chronic ulcer of unspecified part of left lower leg limited to breakdown of skin (2) Bilateral lower extremity edema: CODE(S): R60.0 - Localized edema PLAN: Plan L anterior abarca/calf cluster stable in size, some slough/dried drainage, good granulation tissue. New R calf cluster from minor trauma. Switch to Aquacel extra to wound bases, cover with super absorber. Change dressings at least once daily or more often as needed to keep clean and dry. Wash ulcers with gentle soap and water and pat dry with dressing changes. I emphasized to patient that he is not to submerge wounds in water, including swimming pool, as this puts him at increased risk of infection. Will increase to double-layer high-strength compression (40-50 mmHg). Emphasized the importance of compliance with compression. Emphasized the importance of elevating his feet whenever resting or sleeping as tolerated. Avoid prolonged standing or sitting with feet dependent. Also advised patient to increase protein decrease sugar/carbs in his diet is to encourage wound healing. May need to consider evaluation for venous ablation or lymphedema clinic evaluation. He will return in 3 weeks by his request.
== END 2023-05-15 23:59 | disposition home or self-care (01) ==
LOC: WC 16:00
PROVIDERS: PCP Family Medicine; Referring Provider Family Medicine; Visit Provider Physician Assistant
DX: E11.622 Type 2 diabetes mellitus with other skin ulcer (principal); L97.921 Non-pressure chronic ulcer of unspecified part of left lower leg limited to breakdown of skin; R60.0 Localized edema; M54.9 Dorsalgia, unspecified; M25.561 Pain in right knee; G89.29 Other chronic pain; Z87.891 Personal history of nicotine dependence; Z96.653 Presence of artificial knee joint, bilateral; M25.562 Pain in left knee
CPT/HCPCS: 11042; 11045